=== PATIENT | female | born 1955 | race Caucasian/White ===

== ENCOUNTER 2020-06-09 12:35 | Emergency (ER) | payer OTHER, SELFPAY ==
--- NOTE | ~2020-06-09 | XR_ITS ---
EXAMINATION: XR knee RT 3V EXAM DATE: 06/09/2020 13:09 INDICATION: Fell, subsequent right knee pain anteriorly. [place] pop. Initial encounter. TECHNIQUE: Three projections of the right knee. Comparison is made to prior examination from 3. FINDINGS: No evidence osteochondral defect or joint body in the right knee joint. No appreciable j oint effusion. There are no acute fractures or dislocations identified. There is no subcutaneous gas . There is soft tissue swelling anteromedially. There are no radiopaque foreign bodies. There is m oderate patellofemoral and medial tibial femoral compartment primary osteoarthritis. IMPRESSION: 1. XR knee RT 3V exam without acute osseous findings. 2. Soft tissue swelling. 3. Moderate osteoarthritis. Reviewed, dictated and finalized at location B. [employer]
[2020-06-09 12:34] VITALS: BP 163/73; PULSE 75; RESP 18; TEMP 36.3; O2SAT 97
--- NOTE | 2020-06-09 13:26 | ED.LOWEXIN ---
HPI - Extremity Injury (Lower) General Chief Complaint: Extremity Injury, Lower Stated Complaint: knee pain Source: patient and EMS Mode of arrival: EMS Limitations: no limitations History of Present Illness HPI Narrative: 64 years old white female presents with right knee pain. Patient while get something on the floor, lost her balance and went on form floor mat striking her right knee. Patient denies other injuries. Patient report history of right knee pain for years, last MRI was January 2020. Patient denies any new physical findings of the right knee except feeling worse. 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 EYES: Denies visual changes, redness, or discharge. ENT: Denies rhinorrhea, congestion, sore throat, or otalgia. CARDIOVASCULAR: Denies chest pain, palpitations, or edema. RESPIRATORY: Denies cough or dyspnea. GASTROINTESTINAL: Denies abdominal pain, nausea, vomiting, or diarrhea. GENITOURINARY: Denies dysuria or hematuria. SKIN: Denies rash or itching. MUSCULOSKELETAL: Denies back pain, joint pain, or myalgia. NEUROLOGIC: Denies headache, numbness, or weakness. PSYCHIATRIC: Denies anxiety or depression. [facility] Past Medical History Medical History (Updated 06/09/20 @ 13:37 by Amol Kasper MD) Chronic knee pain Exam Narrative: Exam Narrative: General appearance: Well-developed, well-nourished Skin: Normal color Head: Normocephalic, nontraumatic Eyes: Clear conjunctiva ENT: Oropharynx normal, ears normal, nose normal Neck: Supple, nontender Chest and respiratory: Airway patent, no respiratory distress, no accessory muscle use Heart: Regular rate/rhythm Abdomen: Soft, nontender, no organomegaly, quiet bowel sounds Vascular: Normal peripheral pulses, normal capillary refill. Musculoskeletal: Diffuse tenderness anteriorly, no bruises, no deformity, no rash. Slightly swelling anterior medially which is chronic per patient history. Neurologic: Alert and oriented ?3, BRIM FLEXER is normal as tested, no gross motor deficit Course Course Emergency Course: Improving Vital Signs Vital signs: Vital Signs Temperature 36.3 C L 06/09/20 12:34 Pulse Rate 75 06/09/20 12:34 Respiratory Rate 18 06/09/20 12:34 Blood Pressure 163/73 H 06/09/20 12:34 Pulse Oximetry 97 06/09/20 12:34 Temperature 36.3 C L 06/09/20 12:34 Pulse Rate 75 06/09/20 12:34 Respiratory Rate 18 06/09/20 12:34 Blood Pressure 163/73 H 06/09/20 12:34 Pulse Oximetry 97 06/09/20 12:34 MDM - Extremity Injury (Lower) MDM Narrative Medical decision making narrative: Patient had chronic right knee pain, had a fall less than half foot on a soft floor mat. Right knee x-ray ordered. Further plan to follow Differential Diagnosis Differential diagnosis: Likely acute internal derangement of knee, fracture of femur and other (Contusion, sprain/strain) Critical Care Time Critical Care Time Critical Care Time: No Discharge Plan Discharge Clinical Impression: Contusion of knee, right Qualifiers: Encounter type: subsequent encounter Qualified Code(s): S80.01XD - Contusion of right knee, subsequent encounter Patient Disposition: Home, Self-Care Condition: Stable Instructions: Knee Pain (ED) Additional Instructions: Call your orthopedic for follow-up, off work for 3 days Prescriptions: New naproxen [Naprosyn] 500 mg tablet 500 mg PO BID PRN (
[2020-06-09] MEDS: HYDROcodone/acetaminophen (*CRX) 5-325 MG TABLET 1 TAB PO (13:50)
[2020-06-09 15:15] VITALS: BP 146/72; PULSE 76; RESP 18; O2SAT 99
== END 2020-06-09 15:16 | disposition home or self-care (01) ==
PROVIDERS: Emergency Provider Emergency Medicine; PCP Internal Medicine Infectious Disease
DX: S80.01XA Contusion of right knee, initial encounter (principal); W18.39XA Other fall on same level, initial encounter
CPT/HCPCS: 73562; 99283; A9270

== ENCOUNTER 2020-11-21 10:39 | Emergency (ER) | payer OTHER, SELFPAY ==
--- NOTE | ~2020-11-21 | XR_ITS ---
XR chest 1V portable DATE: 11/21/2020 10:58 INDICATION: Slurred speech. Possible cerebrovascular accident. TECHNIQUE: Portable AP chest on 11/21/2020 at 1058 hours COMPARISON: 08/16/2010 2 view chest FINDINGS: Normal heart size. No hilar or mediastinal enlargement. No pulmonary infiltrate or consolid ation, pleural effusion or pulmonary vascular congestion or pneumothorax. Degenerative spurring of the thoracic spine. Diffuse osteopenia. IMPRESSION: No active cardiopulmonary disease Reviewed, dictated and finalized at location B.
--- NOTE | ~2020-11-21 | CT_ITS ---
EXAMINATION: CT brain wo con DATE: 11/21/2020 11:01 INDICATION: Aphasia. Headache. TECHNIQUE: Computed tomography (CT) of the head was performed without intravenous contrast. The mA wa s adjusted according to patient size. Iterative reconstruction technique was employed. The dose-lengt h product was 605.33 mGy-cm. COMPARISON: None FINDINGS: There is no intracranial hemorrhage, acute infarction, or abnormal intracranial mass lesion . There are scattered areas of low attenuation in the cerebral white matter, which is within normal l imits for the patient's age. The ventricles are normal in size. The orbits are normal. The mastoid ai r cells are normal. There is sclerosis and enlargement of the right middle skull base predominantly i nvolving the sphenoid bone and right pterygoid process. The paranasal sinuses are clear. IMPRESSION: 1. Sclerosis and enlargement of the right middle skull base, consistent with metastatic disease. Reviewed, dictated and finalized at location A. IMPRESSION: 1. Sclerosis and enlargement of the right middle skull base, consistent with me tastatic disease.
[2020-11-21 10:44] VITALS: BP 164/68; PULSE 75; RESP 18; TEMP 36.3; O2SAT 99
[2020-11-21 10:50] LABS: Glucose Point of Care 198 mg/dl (65-105)
--- NOTE | 2020-11-21 10:50 | ECG_ITS ---
Measurements Intervals [place] Rate: 68 P: 76 LA: 144 QRS: -12 QRSD: 92 T: 104 QT: 363 QTc: 388 Interpretive Statements SINUS RHYTHM DELAYED PRECORDIAL R/S TRANSITION BORDERLINE ST-T WAVE ABNORMALITY- HIGH LATERAL LEADS BORDERLINE ECG Electronically Signed On 11-21-2020 10:53:41 CDT by Goyo Babb D.O.
--- NOTE | 2020-11-21 11:14 | ED.GENADULT ---
HPI - General Adult General Chief complaint: Neuro Symptoms/Deficit Stated complaint: Difficulty speaking Time Seen by Provider: 11/21/20 11:06 Source: patient, family and RN notes reviewed Mode of arrival: ambulatory Limitations: physical limitation and clinical condition History of Present Illness HPI narrative: Patient is 64 years old white female brought to the emergency room by her sister daughter in law complaining of not able to speak well, noticed yesterday. Patient lives with her daughter. Patient unable to tell me when the symptoms started because of the clinical condition. The [id number] is telling me that the symptoms probably started yesterday. No other family member at the bedside at this time. Patient is fully vaccinated for COVID-19. Related Data Home Medications Medication Instructions Recorded Confirmed atorvastatin 11/21/20 glimepiride mg 11/21/20 Allergies Allergy/AdvReac Type Severity Reaction Status Date / Time No Known Allergies Allergy Verified 11/21/20 10:53 Review of Systems Review of Systems: Narrative: CONSTITUTIONAL: Denies fever, chills, or sweats. EYES: Denies visual changes, redness, or discharge. ENT: Denies rhinorrhea, congestion, sore throat, or otalgia. CARDIOVASCULAR: Denies chest pain, palpitations, or edema. RESPIRATORY: Denies cough or dyspnea. GASTROINTESTINAL: Denies abdominal pain, nausea, vomiting, or diarrhea. GENITOURINARY: Denies dysuria or hematuria. SKIN: Denies rash or itching. MUSCULOSKELETAL: Denies back pain, joint pain, or myalgia. NEUROLOGIC: Denies headache, numbness, or weakness. PSYCHIATRIC: Denies anxiety or depression. PMFSH Past Medical History Medical History Chronic knee pain Social History Social History Gender identity (if verbalized by the patient): Female Exam Narrative: Exam Narrative: General appearance: Well-developed, well-nourished Skin: Normal color Head: Normocephalic, nontraumatic Eyes: Clear conjunctiva ENT: Oropharynx normal, ears normal, nose normal Neck: Supple, nontender Chest and respiratory: Airway patent, no respiratory distress, no accessory muscle use Heart: Regular rate/rhythm Abdomen: Soft, nontender, no organomegaly, quiet bowel sounds Vascular: Normal peripheral pulses, normal capillary refill. Musculoskeletal: Normal range of motion, nontender back Neurologic: Alert and and oriented to her name only, right facial drooping, left upper extremity drift, slurred speech, expressive aphasia Course Course Emergency Course: Stable Consultations Consultation #1: DR MORALES [facility], neurology, accepted patient transfusion. No bed available at this time. Date: 11/21/20 Time: : Consultation #2: DR VILLARREAL, neurologist at [facility] who accepted patient transfusion Date: 11/21/20 Time: Consultation #3: DR BAGLEY, hospitalist at [facility] who accepted patient transfer Date: 11/21/20 Time: : Vital Signs Vital signs: Vital Signs Temperature 36.3 C L 11/21/20 10:44 Pulse Rate 75 11/21/20 10:44 Respiratory Rate 18 11/21/20 10:44 Blood Pressure 164/68 H 11/21/20 10:44 Pulse Oximetry 99 11/21/20 10:44 Temperature 36.3 C L 11/21/20 10:44 Pulse Rate 75 11/21/20 10:44 Respiratory Rate 18 11/21/20 10:44 Blood Pressure 164/68 H 11/21/20 10:44 Pulse Oximetry 99 11/21/20 10:44 Medical Decision Making [facility] Narrative Medical decision making narrative: Patient presents with strokelike symptoms. Labs, chest x-ray, EKG, CT scan of the head ordered. The above work-up sh
[2020-11-21 11:16] LABS: Basophils Percent Auto 0.2 % (0.2-1.2); Eosinophils Absolute Auto 0.1 K/mm3 (0-0.3); Hematocrit 51.6 % (37.0-47.0); Hemoglobin 17.4 g/dL (12.0-15.0); Immature Granulocyte Absolute 0.06 K/mm3 (0.00-0.031); Immature Granulocyte Percent A 0.5 % (0-0.5); Lymphocytes Absolute Auto 3.51 K/mm3 (0.9-3.2); Lymphocytes Percent Auto 27.9 % (18.3-44.2); Mean Corpuscular HGB Conc 33.7 g/dl (32-36); Mean Corpuscular Hemoglobin 30.1 pg (26-34); Mean Corpuscular Volume 89.1 fl (80-100); Mean Platelet Volume 9.6 fl (7.4-10.4); Monocytes Absolute Auto 0.9 K/mm3 (0.1-0.6); Monocytes Percent Auto 7.4 % (2.6-8.5); Neutrophils Absolute Auto 7.9 K/mm3 (1.3-6.7); Platelet Count Result 312 k/mm3 (150-375); Red Blood Count 5.79 M/mm3 (4.2-5.4); Red Cell Distribution Width 12.1 % (11.5-14.5); White Blood Count 12.6 K/mm3 (4.5-10.0)
[2020-11-21 11:27] LABS: Anion Gap 7 mmol/L (8-16); Blood Urea Nitrogen 18 mg/dL (7-17); Carbon Dioxide 30 mmol/L (22-30); Chloride 103 mmol/L (98-107); Estimated CRCL calculation 93 ml/min; Estimated Glomerular Filt Rate > 60; Glucose 183 mg/dL (65-105); Sodium 140 mmol/L (137-145)
[2020-11-21 11:28] LABS: INR 0.9; Prothrombin Time 11.6 Seconds (11.1-14.7)
[2020-11-21 11:30] LABS: Partial Thromboplastin Time 22.3 SECONDS (22.3-36.8)
[2020-11-21 11:39] LABS: Troponin I < 0.012 ng/mL (0.000-0.034)
[2020-11-21 11:54] VITALS: BP 155/71; PULSE 86; RESP 12; O2SAT 97
[2020-11-21 13:16] VITALS: BP 143/52; PULSE 68; RESP 18; O2SAT 98
[2020-11-21 13:35] VITALS: BP 143/72; PULSE 77; RESP 14; O2SAT 97
--- NOTE | 2020-11-21 13:40 | PC.NURSE ---
Report given to [facility] at this time and transferred to [facility] [place] at this time.
== END 2020-11-21 13:42 | disposition short-term general hospital (02) ==
PROVIDERS: Emergency Provider Emergency Medicine; PCP Internal Medicine Infectious Disease
DX: I63.9 Cerebral infarction, unspecified (principal); C79.51 Secondary malignant neoplasm of bone; C80.1 Malignant (primary) neoplasm, unspecified; R29.705 NIHSS score 5; R94.31 Abnormal electrocardiogram [ECG] [EKG]
CPT/HCPCS: 36415; 70450; 71045; 80048; 82948; 84484; 85025; 85610; 85730; 93005; 99284; 99285

== ENCOUNTER 2021-07-21 13:58 | Observation (INO) | payer OTHER, SELFPAY ==
[2021-07-21] VITALS (17 sets, daily range): BP systolic 145–195; BP diastolic 56–101; PULSE 72–96; RESP 12–27; TEMP 36.5–36.9; O2SAT 97–100; BMI 30.2
--- NOTE | ~2021-07-21 | US_ITS ---
EXAMINATION: US carotid duplex BI DATE: 07/22/2021 09:12 INDICATION: Transient ischemic episode TECHNIQUE: Grayscale, color Doppler, and pulsed Doppler images of the cervical carotid arteries were obtained. The degree of vessel stenosis is placed in one of the following categories: normal, <50%, 5 0-69%, >=70% but less than near-occlusion, near-occlusion, or total occlusion. Note that percent sten osis relative to normal distal artery lumen diameter is indirectly measured from velocity measurement s as described by Eitan, et al. Radiology 2003; 229:340-346. COMPARISON: None. FINDINGS: RIGHT: The right common carotid artery (CCA) peak systolic velocity (PSV) is 76 cm/s. The right internal car otid artery (ICA) PSV is 56 cm/s. The right ICA end-diastolic velocity (EDV) is 10 cm/s. The right IC A/CCA PSV ratio is 0.7. Grayscale and color Doppler images yield an estimate of <50% diameter reducti on from plaque in the ICA. The external carotid artery (ECA) PSV is 123 cm/s. There is antegrade flow in the right vertebral artery. LEFT: The left CCA PSV is 69 cm/s. The left ICA PSV is 61 cm/s. The left ICA EDV is 19 cm/s. The left ICA/C CA PSV ratio is 0.9. Grayscale and color Doppler images yield an estimate of <50% diameter reduction from plaque in the ICA. The ECA PSV is 67 cm/s. There is antegrade flow in the left vertebral artery. IMPRESSION: 1. <50% stenosis in the right internal carotid artery. 2. <50% stenosis in the left internal carotid artery. Reviewed, dictated and finalized at location A.
--- NOTE | ~2021-07-21 | CT_ITS ---
EXAMINATION: CT brain wo con DATE: 07/21/2021 14:25 INDICATION: Altered mental status and right hemiparesis TECHNIQUE: Computed tomography (CT) of the head was performed without intravenous contrast. Sagittal and coronal reconstructions were performed. The mA was adjusted according to patient size. Iterative reconstruction technique was employed. The dose-length product was 605.33 mGy-cm. COMPARISON: head CT dated 11/21/2020 FINDINGS: Small region of encephalomalacia in the left frontal lobe consistent with chronic infarct. No acute i ntracranial hemorrhage, acute infarction or abnormal extra axial fluid collection. Ventricles are nor mal and symmetric. No mass/mass effect. No appreciable interval change in a sclerotic lesion which ap pears to expand the right greater wing of the sphenoid which appears unchanged since the prior study. The orbits, paranasal sinuses and mastoid air cells are normal. IMPRESSION: 1. No acute intracranial process. 2. Small old infarct in the left frontal lobe. 3. Stable appearance of a sclerotic expansile lesion of the right greater wing of the sphenoid which could be either benign such as fibrous dysplasia or Paget's disease or malignant/metastatic although the lack of interval change argues against untreated malignancy. Reviewed, dictated and finalized at location A. IMPRESSION: 1. No acute intracranial process. 2. Small old infarct in the left frontal lobe. 3. Stable appearance of a sclerotic expansile lesion of the right greater wing of the sphenoid which could be either benign such as fibrous dysplasia or Paget 's disease or malignant/metastatic although the lack of interval change argues against untreated malignancy.
--- NOTE | ~2021-07-21 | MR_ITS ---
EXAMINATION: MR brain/brain stem wo/w con DATE: 07/22/2021 08:14 INDICATION: Transient ischemic attack. Right hemiparesis. TECHNIQUE: Magnetic resonance imaging (MRI) of the brain and brainstem was performed without and with 14 mL MultiHance intravenous contrast. Sequences included sagittal and axial T1-weighted FSE, axial diffusion-weighted FS EPI, axial T2*-weighted GRE, axial T2-weighted FLAIR Propeller, and axial T2-we ighted Propeller. Postcontrast sequences included axial, sagittal, and coronal T1-weighted FSE. Appar ent diffusion coefficient (ADC) maps were created. COMPARISON: Head CT 07/21/2021, 11/21/2020 FINDINGS: There is a small acute infarct in left frontoparietal region. There is no intracranial hemo rrhage or abnormal mass lesion. There are old infarcts in left frontal lobe. There are scattered area s of nonspecific increased T2-weighted signal intensity in the cerebral white matter, which is within normal limits for the patient's age. The ventricles are normal in size. The orbits are normal. There is mild mucosal thickening in the ethmoid sinuses. The mastoid air cells are normal. There is an exp ansile sclerotic mass of right sphenoid measuring 5.6 x 2.9 cm. IMPRESSION: 1. Small acute infarct in left frontoparietal region. 2. Old infarcts in left frontal lobe. 3. 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 Reviewed, dictated and finalized at location A. IMPRESSION: 1. Small acute infarct in left frontoparietal region. 2. Old infarcts in left frontal lobe. 3. 5.6 x 2.9 cm expansile sclerotic mass in right sphenoid bone, stable from , most likely a benign lesion such as fibrous dysplasia or Paget disease given the lack of interval change.
--- NOTE | ~2021-07-21 | CT_ITS ---
EXAMINATION: CTA brain carotid DATE: 07/22/2021 11:17 INDICATION: Right hemiparesis. Acute cerebrovascular accident. TECHNIQUE: Computed tomographic angiography (CTA) of the head was performed with 100 mL Omnipaque-350 intravenous contrast. CTA of the neck was performed with intravenous contrast. Automated exposure co ntrol and iterative reconstruction technique were employed. The dose-length product was 1085.70 mGy-c m. Maximum intensity projection and volume rendered 3D-reconstructions were created by the technologi on a separate workstation. COMPARISON: Head CT 07/21/2021, 11/21/2020, brain MRI 07/22/2021 FINDINGS: HEAD CTA: There are old infarcts in left frontal lobe. There is a small acute infarct in left frontop arietal region. There is no intracranial hemorrhage or abnormal mass lesion. The ventricles are lucille l in size. The paranasal sinuses are clear. The mastoid air cells are normal. There is a 5.6 x 2.9 cm expansile sclerotic mass in right sphenoid bone. The orbits are normal. Left vertebral artery is dom inant. There is no significant stenosis of basilar artery or the posterior cerebral arteries. The pos terior communicating arteries are normal. There is no significant stenosis of the intracranial international marketing specialist al carotid arteries or anterior cerebral arteries. There is moderate stenosis of proximal left middle cerebral artery. There is no aneurysm. NECK CTA: There is mild scarring at the lung apices. There are no pathologically enlarged lymph nodes . There is no significant stenosis of the vertebral arteries. There is plaque in the proximal interna l carotid arteries. There is 0% stenosis of the proximal right internal carotid artery relative to no rmal distal artery lumen diameter (NASCET criteria). There is 0% stenosis of the proximal left international marketing specialist al carotid artery relative to normal distal artery lumen diameter. There is mild cervical spondylosis . IMPRESSION: 1. Small acute infarct in left frontoparietal region. 2. Old infarcts in left frontal lobe. 3. 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 4. 0% stenosis of the proximal internal carotid arteries relative to normal distal artery lumen diame ters (NASCET criteria). 5. Expansile sclerotic mass in right sphenoid bone, stable from 11/21/2020, most likely a benign lesio n such as fibrous dysplasia or Paget disease given the lack of interval change. Reviewed, dictated and finalized at location A. IMPRESSION: 1. Small acute infarct in left frontoparietal region. 2. Old infarcts in left frontal lobe. 3. 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 4. 0% stenosis of the proximal internal carotid arteries relative to normal dis vicky artery lumen diameters (NASCET criteria). 5. Expansile sclerotic mass in right sphenoid bone, stable from 11/21/2020, most likely a benign lesion such as fibrous dysplasia or Paget disease given the la ck of interval change.
--- NOTE | 2021-07-21 14:15 | ECG_ITS ---
Measurements Intervals [place] Rate: 72 P: 69 SD: 164 QRS: 38 QRSD: 90 T: 106 QT: 356 QTc: 390 Interpretive Statements SINUS RHYTHM NONSPECIFIC T-WAVE ABNORMALITY COMPARED TO ECG 11/21/2020 10:50:47 T-WAVE ABNORMALITY NOW PRESENT Electronically Signed On 07-21-2021 18:39:32 CDT by Kailey Tate M.D.
[2021-07-21 14:39] LABS: Basophils Percent Auto 0.3 % (0.2-1.2); Eosinophils Absolute Auto 0.3 K/mm3 (0-0.3); Eosinophils Percent Auto 2.6 % (0-4.4); Hematocrit 43.3 % (37.0-47.0); Hemoglobin 15.1 g/dL (12.0-15.0); Immature Granulocyte Absolute 0.03 K/mm3 (0.00-0.031); Immature Granulocyte Percent A 0.3 % (0-0.5); Lymphocytes Absolute Auto 3.51 K/mm3 (0.9-3.2); Lymphocytes Percent Auto 36.7 % (18.3-44.2); Mean Corpuscular HGB Conc 34.9 g/dl (32-36); Mean Corpuscular Hemoglobin 30.8 pg (26-34); Mean Corpuscular Volume 88.4 fl (80-100); Mean Platelet Volume 9.2 fl (7.4-10.4); Monocytes Absolute Auto 0.6 K/mm3 (0.1-0.6); Monocytes Percent Auto 6.6 % (2.6-8.5); Neutrophils Absolute Auto 5.1 K/mm3 (1.3-6.7); Neutrophils Percent Auto 53.5 % (45.5-73.1); Platelet Count Result 324 k/mm3 (150-375); Red Cell Distribution Width 11.8 % (11.5-14.5); White Blood Count 9.6 K/mm3 (4.5-10.0)
[2021-07-21 14:54] LABS: Glucose Point of Care 139 mg/dl (65-105)
[2021-07-21 14:55] LABS: Alanine Aminotransferase 16 U/L (4-35); Albumin Level 4.4 g/dL (3.5-5.1); Alkaline Phosphatase 73 U/L (38-126); Anion Gap 7 mmol/L (8-16); Aspartate Amino Transferase 32 U/L (14-36); Bilirubin,Total 0.3 mg/dL (0.2-1.3); Blood Urea Nitrogen 13 mg/dL (7-17); Calcium 9.7 mg/dL (8.4-10.2); Carbon Dioxide 27 mmol/L (22-30); Chloride 103 mmol/L (98-107); Estimated CRCL calculation 90 ml/min; Estimated Glomerular Filt Rate > 60; Glucose 133 mg/dL (65-110); Potassium 3.8 mmol/L (3.4-5.0); Sodium 137 mmol/L (137-145)
[2021-07-21 14:56] LABS: INR 0.9
[2021-07-21] MEDS: ASPIRIN 81 MG CHEWABLE TABLET 324 MG (15:04)
--- NOTE | 2021-07-21 15:04 | ED.WEAKNESS ---
HPI - Weakness General Chief complaint: Weakness Stated complaint: RT side weakness Time Seen by Provider: 07/21/21 14:49 Source: patient and RN notes reviewed Mode of arrival: ambulatory Limitations: no limitations History of Present Illness HPI Narrative: Patient is 65 years old white female presented to the ED with sudden onset of trouble moving the right lower extremity and right upper extremity, felt weird, not following her orders. Lasted about 30 minutes then gradually getting better. Currently patient is not back to normal 100% but her symptoms resolved almost 80%. History of CVA November 21, 2020, with aphasia, resolved in 5 days. Currently patient on Coumadin. Patient used aspirin for 90 days after the stroke. History of diabetes, hyperlipidemia, smoking, intermittent marijuana use, no drinking. Patient came to the emergency room by a car Related Data Home Medications Medication Instructions Recorded Confirmed atorvastatin 11/21/20 glimepiride mg 11/21/20 Allergies Allergy/AdvReac Type Severity Reaction Status Date / Time No Known Allergies Allergy Verified 11/21/20 10:53 Review of Systems Review of Systems: CONSTITUTIONAL: Denies fever, chills, or sweats. EYES: Denies visual changes, redness, or discharge. ENT: Denies rhinorrhea, congestion, sore throat, or otalgia. CARDIOVASCULAR: Denies chest pain, palpitations, or edema. RESPIRATORY: Denies cough or dyspnea. GASTROINTESTINAL: Denies abdominal pain, nausea, vomiting, or diarrhea. GENITOURINARY: Denies dysuria or hematuria. SKIN: Denies rash or itching. MUSCULOSKELETAL: Denies back pain, joint pain, or myalgia. NEUROLOGIC: Denies headache, numbness, or weakness. PSYCHIATRIC: Denies anxiety or depression. PMFSH Past Medical History Medical History Chronic knee pain Social History Social History Gender identity (if verbalized by the patient): Female Exam Narrative: General appearance: Well-developed, well-nourished, patient talks funny which is normal for her. Skin: Normal color Head: Normocephalic, nontraumatic Eyes: Clear conjunctiva ENT: Oropharynx normal, ears normal, nose normal Neck: Supple, nontender Chest and respiratory: Airway patent, no respiratory distress, no accessory muscle use Heart: Regular rate/rhythm Abdomen: Soft, nontender, no organomegaly, quiet bowel sounds Vascular: Normal peripheral pulses, normal capillary refill. Musculoskeletal: Normal range of motion, nontender back Neurologic: Alert and oriented ?3, CERTIFIED ART THERAPIST is normal as tested, no gross motor deficit Course Course Emergency Course: Improving Patient reports not taking her Coumadin. INR is 0.9, patient talks funny, which is normal for her Consultations Consultation #1: Dr. Morrison Date: 07/21/21 Time: 15:19 Consultation #2: Rebecca nurse practitioner, hospitalist Date: 07/21/21 Time: 15:19 Vital Signs Vital signs: Vital Signs Temperature 36.6 C 07/21/21 14:07 Pulse Rate 96 07/21/21 14:07 Respiratory Rate 18 07/21/21 14:07 Blood Pressure 174/72 H 07/21/21 14:07 Pulse Oximetry 98 07/21/21 14:07 Temperature 36.6 C 07/21/21 14:07 Pulse Rate 96 07/21/21 14:07 Respiratory Rate 18 07/21/21 14:07 Blood Pressure 174/72 H 07/21/21 14:07 Pulse Oximetry 98 07/21/21 14:07 MDM - Weakness Lab Data Result diagrams: 07/21/21 14:33 07/21/21 14:33 Labs: Lab Results 07/21/21 07/21/21 07/21/21 Range/Units 14:33 14:33 14:33 WBC 9.6 (4.5-10.0) K/mm3 RBC 4.90 (4.2-5.4) M/mm3 Hgb 15.1 H (12.0-15.0) g/dL Hc
[2021-07-21 15:22] LABS: Add Urine Microscopic? NO; Appearance Urine Clear (Clear); Bilirubin Urine Negative (Negative); Blood Urine Negative (Negative); Color Urine Yellow (Yellow); Glucose Urine UA Negative (Negative); Ketones Urine Negative (Negative); Leukocyte Esterase Ur Negative LEU/UL (Negative); Nitrate Urine Negative (Negative); Protein Urine Negative (Negative); Urobilinogen Urine Negative mg/dL (<2.0)
[2021-07-21 17:32] LABS: Glucose Point of Care 95 mg/dl (65-105)
--- NOTE | 2021-07-21 17:33 | ADMGEN ---
This patient, Niya Lombardi, was admitted to [facility] Surg Room 320-01 at 1702. Patient/family oriented to hospital policies and general routines including ID bracelet, bed and alarms, visiting hours, pain management, procedures, bathroom and other care routines, personal items, smoking policy, room service/diet, and visiting hours. Information on how to activate the Rapid Response Team has been discussed. Patient/Family are encouraged to report perceived risks to care and to ask questions if they do not understand what they are told or what they should do.
[2021-07-21 20:20] LABS: Glucose Point of Care 147 mg/dl (65-105)
--- NOTE | 2021-07-21 21:16 | PM.IMHP ---
H&P: HPI History of Present Illness Date/Time: Patient was placed observation status for expected length of stay less than 23 hours for management, will plan to re-evaluate tomorrow for improvement. 07/21/21 21:16 Chief Complaint: Right foot and arm numbness Narrative: Ms. Lombardi is a 65-year-old female who presented emergency room with complaints of left foot and right arm numbness. Patient states she was at work and she went to move her right foot she felt like it was asleep but it there was no ?tingling?. Patient states that she did notice that her right arm began to feel very numb also. Patient states she then sat down and she began having feeling in her foot. Patient states that she called her daughter for right the [facility] and her daughter's friend to come pick her up. Patient denied any slurring of speech. Patient denied any facial droop. Patient denied any double vision, blurred vision, or vision loss. Patient states she had no chest pain, shortness breast, lightheadedness, dizziness, syncopal, or near syncopal episodes. Patient states that she did have stroke in November of 2020 and she was seen at [facility] and since that time she has had some slow speech because she thinks very hard before she speaks. Patient states that at the time of her previous stroke she was placed on aspirin 325 mg as well as Plavix 75 mg daily. Patient states that she was told to quit taking the aspirin 325 mg after 90 days. Patient states that she ran out of the Plavix and never followed up with Neurology to get it refilled. Patient states she is unsure she is supposed to be taking the Plavix or not. Patient states she does have a known history of CVA, diabetes mellitus, hypertension, dyslipidemia, and osteoarthritis. Patient states she is an active smoker and has been so for approximately 30 years. Review of Systems Review of Systems: A 12 point review of systems was completed patient all pertinent positive and negative per HPI the remainder are unremarkable. [facility] Past Medical History Medical History (Updated 07/21/21 @ 21:25 by Rebecca Trejo APRN) Chronic knee pain CVA (cerebral vascular accident) Diabetes mellitus Dyslipidemia Hypertension Osteoarthritis Surgical History Surgical History (Updated 07/21/21 @ 21:25 by Rebecca Trejo APRN) History of reversal of tubal ligation Status post complete hysterectomy Social History Social History Smoking packs per day: 1 Smoking cigarettes per day: 20.0 Years smoked: 35 Smoking pack-years: 35.00 Smoking status: Current every day smoker Tobacco type: cigarettes Alcohol intake: never Substance use: current Substance use type: marijuana Gender identity (if verbalized by the patient): Female Spiritual care concerns: No Meds Home Medications and Allergies Home Medications Medication Instructions Recorded Confirmed Type atorvastatin [Lipitor] 40 mg PO DAILY 11/21/20 07/21/21 History clopidogrel [Plavix] 75 mg PO DAILY 07/21/21 07/21/21 History insulin glargine [Lantus Solostar 12 unit SUBCUT HS 07/21/21 07/21/21 History U-100 Insulin] insulin lispro 6 unit SUBCUT [facility] 07/21/21 07/21/21 History liraglutide [Victoza 3-Ryan] 0.6 mg SUBCUT HS 07/21/21 07/21/21 History Allergies Allergy/AdvReac Type Severity Reaction Status Date / Time No Known Allergies Allergy Verified 07/21/21 16:58 Vital Signs Vital Signs - 24 hr 07/21/21 14:07 07/21/21 14:26 07/21/21 14:29 Temperature 36.6 C Pulse Rate 96 79 76 Respiratory Rate 18 17 19 Blood Pressure 174/72 H 187/70 H Pulse Oximetry 98 100 99 07/21/21 14:30 07/21/21 14:39 07/21/21 14:45 Temperature Pulse Rate 78 78 Respiratory Rate 17 14 Blood Pressure 152/73 H Pulse Oximetry 100 98 07/21/21 14:46 07/21/21 15:00 07/21/21 15:04 Temperature Pulse Rate 89 79 Respiratory Rate 27 H 12 Blood Pressure 164/76 H 1
[2021-07-21] MEDS: INSULIN GLARGINE (*BKC) 100 UNITS/ML 12 UNITS SUB-Q (22:38)
[2021-07-22] VITALS: PULSE 72
--- NOTE | 2021-07-22 | ECHO_ITS ---
Patient Info Name: Niya Lombardi Age: 65 years : 1955 Gender: Female Ht: 62 in Wt: 164 lbs BSA: 1.83 m2 HR: 76 bpm BP: 131 / 53 mmHg Heart Rhythm: Sinus Rhythm Technical Quality: Fair Exam Date: 07/22/2021 7:31 AM Exam Location: [facility] Pulmonary Patient Status: Inpatient Admit Date: 07/21/2021 Staff Ordering Physician: Rebecca Trejo APRN French Tutor: Rosalina Amos RDCS Attending Provider: Marixa Rosas PA-C Referring Physician: Neil QUACH; Exam Type: CA echo doppler color flow Study Info Indications - TIA Complete two-dimensional, color flow and Doppler transthoracic echocardiogram is performed. Summary 1. Complete two-dimensional, color flow and Doppler transthoracic echocardiogram is performed. 2. Normal left ventricular size with borderline concentric hypertrophy. Good systolic function of all segments with no segmental wall motion abnormalities. Ejection fraction is measured at 73% and visually appears 65-70%. Grade 2 diastolic dysfunction is present. 3. Left atrial chamber dimension is mildly enlarged. 4. No pulmonary hypertension, estimated pulmonary arterial systolic pressure is 25 mmHg. 5. No significant valve disease. 6. No evidence of intracardiac shunting with bubble study during normal respiration on Valsalva. 7. Normal sinus rhythm. Left Ventricle Left ventricular chamber dimension is normal. Left ventricular systolic function is normal, estimated at 65-70%. There is mildly increased left ventricular wall thickness. Left ventricular septal wall motion is normal. The left ventricular diastolic function is grade II diastolic dysfunction. Right Ventricle Right ventricular chamber dimension is normal. Right ventricular systolic function is normal. Left Atria Left atrial chamber dimension is mildly enlarged. Right Atria Right atrial chamber dimension is normal. Aortic Valve The aortic valve is trileaflet. There is no aortic valve sclerosis. There is no aortic valve stenosis. There is no aortic valve regurgitation. Pulmonic Valve The pulmonic valve is normal. There is no pulmonic valve stenosis. There is no pulmonic regurgitation. Mitral Valve The mitral valve has normal leaflets. There is no mitral valve stenosis. There is no mitral valve regurgitation. Tricuspid Valve The tricuspid valve leaflets are normal. There is no significant tricuspid valve stenosis. There is trace tricuspid valve regurgitation. No pulmonary hypertension, estimated pulmonary arterial systolic pressure is 25 mmHg. Pericardium/Pleural The pericardium appears normal. There is no pericardial effusion. Inferior Vena Cava Normal inferior vena cava with >50% collapse upon inspiration consistent with Empty right atrial pressure, 10 mmHg. Aorta The aortic root size at the sinus of Valsalva is normal. The prox ascending aorta size is normal. Left Ventricular Outflow Tract Name Value Normal LVOT 2D LVOT Diameter 2.0 cm LVOT Doppler LVOT Peak Gradient 2 mmHg LVOT Mean Gradient 1 mmHg
[2021-07-22 04:00] VITALS: PULSE 67
[2021-07-22 06:00] VITALS: BP 131/53; PULSE 76; RESP 18; TEMP 35.9; O2SAT 96
[2021-07-22 06:03] LABS: Glucose Point of Care 112 mg/dl (65-105)
[2021-07-22 06:14] LABS: Basophils Percent Auto 0.4 % (0.2-1.2); Eosinophils Absolute Auto 0.4 K/mm3 (0-0.3); Eosinophils Percent Auto 3.8 % (0-4.4); Hematocrit 40.1 % (37.0-47.0); Hemoglobin 13.9 g/dL (12.0-15.0); Immature Granulocyte Absolute 0.02 K/mm3 (0.00-0.031); Immature Granulocyte Percent A 0.2 % (0-0.5); Lymphocytes Absolute Auto 4.02 K/mm3 (0.9-3.2); Lymphocytes Percent Auto 38.9 % (18.3-44.2); Mean Corpuscular HGB Conc 34.7 g/dl (32-36); Mean Corpuscular Volume 89.5 fl (80-100); Mean Platelet Volume 9.5 fl (7.4-10.4); Monocytes Absolute Auto 0.8 K/mm3 (0.1-0.6); Monocytes Percent Auto 7.6 % (2.6-8.5); Neutrophils Absolute Auto 5.1 K/mm3 (1.3-6.7); Neutrophils Percent Auto 49.1 % (45.5-73.1); Platelet Count Result 285 k/mm3 (150-375); Red Blood Count 4.48 M/mm3 (4.2-5.4); Red Cell Distribution Width 11.8 % (11.5-14.5); White Blood Count 10.3 K/mm3 (4.5-10.0)
[2021-07-22 06:22] LABS: Anion Gap 4 mmol/L (8-16); Blood Urea Nitrogen 14 mg/dL (7-17); Calcium 8.8 mg/dL (8.4-10.2); Carbon Dioxide 25 mmol/L (22-30); Chloride 107 mmol/L (98-107); Cholesterol 175 mg/dL (0-200); Estimated CRCL calculation 90 ml/min; Estimated Glomerular Filt Rate > 60; Glucose 110 mg/dL (65-110); HDL Direct 28 mg/dL; Potassium 3.8 mmol/L (3.4-5.0); Sodium 136 mmol/L (137-145); Triglycerides 246 mg/dL (<150)
[2021-07-22 06:33] LABS: LDL Cholesterol Direct 98 mg/dL
[2021-07-22 07:37] LABS: Glucose Point of Care 120 mg/dl (65-105)
[2021-07-22 08:10] VITALS: O2SAT 96
[2021-07-22] MEDS: ASPIRIN 81 MG CHEWABLE TABLET PO (09:30)
[2021-07-22] MEDS: CLOPIDOGREL BISULFATE 75 MG TABLET PO (09:31)
[2021-07-22] MEDS: ENOXAPARIN 40 MG/0.4 ML SYRINGE SUB-Q (09:31)
[2021-07-22] MEDS: ATORVASTATIN 40 MG TABLET PO (09:31)
[2021-07-22 11:31] LABS: Glucose Point of Care 244 mg/dl (65-105)
--- NOTE | 2021-07-22 11:53 | PCCCNOTE ---
On 07/22/21, the student, [Asya Braswell ], provided care and completed [facility] documentation on this patient. I have reviewed the student's documentation and agree with the findings.
--- NOTE | 2021-07-22 12:22 | WPDNEURCNPN ---
Assessment and Plan Additional Plan 1. TIA 2. Diabetes mellitus type 2 with mild diabetic neuropathy 3. Hypertension 4. Hyperlipidemia 5. 5.6x2.9cm expansile sclerotic mass in the right sphenoid bone which is stable from November 21, 2020 most likely benign lesion such as fibrous dysplasia or Paget's disease 6. Documented a small acute infarct in the left fronto parietal region plan is to continue on aspirin and Plavix particularly with the presence of moderate stenosis of the proximal left middle cerebral artery Consult date: 07/22/21 HPI: Niya Lombardi is a 65 year old female Admitted to the hospital through the emergency room. She presented with sudden onset of difficulties in moving her right lower extremity and right upper extremity along with the veered sensation the whole episode lasted for about 30 minutes then gradually she got better though she is not back to normal 100% she has had cerebrovascular accident in November of 2020 along with the difficulties with speech which resolved in about 5 days patient is right now on Coumadin though she use aspirin also for 90 days after the stroke she does have ongoing history of diabetes mellitus, hyperlipidemia, being allergic to no specific medication and taking only atorvastatin and glimepiride at home at the time of initial visit in the emergency room she had no other specific problems. Her CBC was normal, though as the CMP except the blood sugar of 133, and a CT scan of the head documented small old infarct in left frontal lobe in addition to the Reynaldo otic expansile lesion of the right greater wing of the sphenoid bone the possibility of fibrous dysplasia or pages disease or malignancy of metastatic disease patient was admitted to the hospital with the diagnosis of TIA. At the time of initial presentation she also mention that she has the slow speech ever since she had the 1st stroke she has to think very hard before she speaks and also mention that she ran out of the Plavix and never followed up with a neurologist to get it refilled, she is currently everyday smoker is smoking pack years of 35 and 20 cigarettes per day and her outpatient medication also included insulin atorvastatin clopidogrel which she already mention that she had not been taking he was admitted to the hospital with the diagnosis of 1. TIA 2. Type 2 diabetes mellitus 3. Hypertension 4. Dyslipidemia. Her subsequent investigations included a CTA which documented a small acute infarct in the left frontoparietal region with old infarcts in left frontal lobe and moderate stenosis of proximal left middle cerebral artery in addition to expansile sclerotic mass in the right sphenoid bone she has been stable since November 21, 2020 and most likely is a benign lesion such as fibrous dysplasia or Paget's disease given the lack of interval change and her routine labs again has documented blood sugar of 244 Review of Systems Review of Systems: All systems reviewed & are unremarkable except as noted in HPI and below PMFSH Past Medical History Medical History Chronic knee pain CVA (cerebral vascular accident) Diabetes mellitus Dyslipidemia Hypertension Osteoarthritis Surgical History Surgical History History of reversal of tubal ligation Status post complete hysterectomy Social History Social History Smoking packs per day: 1 Smoking cigarettes per day: 20.0 Years smoked: 35 Smoking pack-years: 35.00 Smoking status: Current every day smoker Tobacco type: cigarettes Alcohol intake: never Substance use: current Substance use type: marijuana Gender identity (if verbalized by the patient): Female Spiritual care concerns: No Meds Home Medications and Allergies Home Medications Medication Instructions Recorded Confirmed Type atorvastatin [Lipitor] 40 mg PO DAILY 11/21/2007/21
[2021-07-22] MEDS: INSULIN ASPART (*BKC) 100 UNITS/ML 6 UNITS SUB-Q (13:00)
[2021-07-22 13:35] VITALS: BP 139/55; PULSE 68; RESP 18; TEMP 36.3; O2SAT 96
--- NOTE | 2021-07-22 16:27 | P.DS_ITS ---
DS: Admitting Diagnosis Discharge Date 07/22/2021 Admitting Diagnosis Acute CVA DS: Discharge Diagnosis Discharge Diagnosis (1) Acute CVA (cerebrovascular accident): Code(s): I63.9 - Cerebral infarction, unspecified Status: Acute Assessment and Plan: Patient presented with right-sided weakness that lasted for 30 minutes * Head CT on presentation was negative for acute findings with the sense of old infarct, consistent with patient's history of prior stroke. Noted that she was supposed to be on aspirin and Plavix due to this history but had not been taking this as she did not get this prescription refilled * Follow-up MRI showed small acute infarct in the left frontoparietal region * Carotid Doppler with <50% stenosis of the bilateral internal carotid arteries * Head/neck CTA performed showed 0% stenosis of the proximal internal carotid arteries * Echocardiogram with bubble study showed normal EF, no significant valvular disease, no evidence of intracardiac shunting * The patient's symptoms resolved and she was at her baseline functional status * She did have issues with word finding which has been ongoing since her previous stroke in November 2020. She was evaluated by speech therapy during her hospitalization and was referred for outpatient ST to continue therapy * Lipid panel reviewed. Continue high intensity statin * Begin aspirin and Plavix. Educated regarding importance of follow-up and medication compliance * She was seen in consultation by Neurology during admission * Educated extensively on smoking cessation as well as lifestyle and dietary modifications (2) Diabetes mellitus: Code(s): E11.9 - Type 2 diabetes mellitus without complications Status: Acute Assessment and Plan: A1c is 7.9. * Blood sugars reviewed during admission were generally well controlled * Continue home insulin regimen consisting of 12 units Lantus qHS and 6 units lispro with meals * Continue Victoza * Tight glycemic control encouraged. Instructed to monitor blood sugars at home with meals and at bedtime and follow-up with PCP for review and medication adjustment as needed (3) Hypertension: Code(s): I10 - Essential (primary) hypertension Status: Acute Assessment and Plan: Blood sugars were elevated on presentation but did improve prior to discharge * She is not on any antihypertensive medications. States she stopped taking these after losing quite a bit of weight and no longer requiring medications for BP control * Blood pressure was in the 130-140 systolic around time of discharge. * She should monitor blood pressures at home and follow-up with PCP in 1 week for blood pressure check (4) Dyslipidemia: Code(s): E78.5 - Hyperlipidemia, unspecified Status: Acute Assessment and Plan: Lipid panel reviewed * Continue high-intensity statin * Provided instruction on dietary modifications (5) Tobacco abuse: Code(s): Z72.0 - Tobacco use Status: Acute Assessment and Plan: Patient smokes 1 pack per day * Educated on smoking cessation for 5 minutes * She is aware that continued tobacco use will increase her risk for stroke * Patient reports she will attempt to quit smoking (6) Abnormal brain scan: Code(s): R94.02 - Abnormal brain scan Status: Acute Assessment and Plan: CT MRI of the brain showed stable appearance of sclerotic expansile lesion of right sphenoid bone * Noted to be stable from prior imaging in November 2020 * [place] to be most consistent with benign
--- NOTE | 2021-07-22 16:27 | PM.DS ---
DS: Admitting Diagnosis Discharge Date 07/22/2021 Admitting Diagnosis Acute CVA DS: Discharge Diagnosis Discharge Diagnosis (1) Acute CVA (cerebrovascular accident): Code(s): I63.9 - Cerebral infarction, unspecified Status: Acute Assessment and Plan: Patient presented with right-sided weakness that lasted for [address] on presentation was negative for acute findings with the sense of old infarct, consistent with patient's history of prior stroke. Noted that she was supposed to be on aspirin and Plavix due to this history but had not been taking this as she did not get this prescription refilled Follow-up MRI showed small acute infarct in the left frontoparietal region Carotid Doppler with <50% stenosis of the bilateral internal carotid arteries Head/neck CTA performed showed 0% stenosis of the proximal internal carotid arteries Echocardiogram with bubble study showed normal EF, no significant valvular disease, no evidence of intracardiac shunting The patient's symptoms resolved and she was at her baseline functional status She did have issues with word finding which has been ongoing since her previous stroke in November 2020. She was evaluated by speech therapy during her hospitalization and was referred for outpatient ST to continue therapy Lipid panel reviewed. Continue high intensity statin Begin aspirin and Plavix. Educated regarding importance of follow-up and medication compliance She was seen in consultation by Neurology during admission Educated extensively on smoking cessation as well as lifestyle and dietary modifications (2) Diabetes mellitus: Code(s): E11.9 - Type 2 diabetes mellitus without complications Status: Acute Assessment and Plan: A1c is 7.9. Blood sugars reviewed during admission were generally well controlled Continue home insulin regimen consisting of 12 units Lantus qHS and 6 units lispro with meals Continue Victoza Tight glycemic control encouraged. Instructed to monitor blood sugars at home with meals and at bedtime and follow-up with PCP for review and medication adjustment as needed (3) Hypertension: Code(s): I10 - Essential (primary) hypertension Status: Acute Assessment and Plan: Blood sugars were elevated on presentation but did improve prior to discharge She is not on any antihypertensive medications. States she stopped taking these after losing quite a bit of weight and no longer requiring medications for BP control Blood pressure was in the 130-140 systolic around time of discharge. She should monitor blood pressures at home and follow-up with PCP in 1 week for blood pressure check (4) Dyslipidemia: Code(s): E78.5 - Hyperlipidemia, unspecified Status: Acute Assessment and Plan: Lipid panel reviewed Continue high-intensity statin Provided instruction on dietary modifications (5) Tobacco abuse: Code(s): Z72.0 - Tobacco use Status: Acute Assessment and Plan: Patient smokes 1 pack per day Educated on smoking cessation for 5 minutes She is aware that continued tobacco use will increase her risk for stroke Patient reports she will attempt to quit smoking (6) Abnormal brain scan: Code(s): R94.02 - Abnormal brain scan Status: Acute Assessment and Plan: CT MRI of the brain showed stable appearance of sclerotic expansile lesion of right sphenoid bone Noted to be stable from prior imaging in November 2020 [place] to be most consistent with benign lesion such as fibrous dysplasia or Paget disease Outpatient follow-up with PCP for further monitoring DS: Summary Hospital Course Hospital Course: Date of admission: 07/21/21 Date of discharge: 07/22/21 Niya Lombardi is a 65 year old female with a history of hypertension, type diabetes mellitus, hyperlipidemia, tobacco abuse, and CVA in November 2020 with associated dysphasia who presented to the emergency departme
[2021-07-22 16:50] LABS: Glucose Point of Care 166 mg/dl (65-105)
[2021-07-22 16:59] LABS: Hemoglobin A1C 7.9 % (<5.7)
[2021-07-27 00:14] LABS: Vitamin D 1,25 (OH)2 Total 40 pg/mL (18-72); Vitamin D2 1,25 (OH)2 <8 pg/mL; Vitamin D3 1,25 (OH)2 40 pg/mL
== END 2021-07-22 17:50 | disposition home or self-care (01) ==
LOC: ANHED 15:20 → ANH3MEDSUR 17:00
PROVIDERS: Nurse Practitioner Adult Health; Admitting Provider Family Medicine; Emergency Provider Emergency Medicine; PCP Internal Medicine Infectious Disease; Visit Provider Physician Assistant
DX: I63.9 Cerebral infarction, unspecified (principal); R53.1 Weakness; R29.703 NIHSS score 3; I69.328 Other speech and language deficits following cerebral infarction; E78.5 Hyperlipidemia, unspecified; I10 Essential (primary) hypertension; E11.40 Type 2 diabetes mellitus with diabetic neuropathy, unspecified; J34.89 Other specified disorders of nose and nasal sinuses; M19.90 Unspecified osteoarthritis, unspecified site; F12.90 Cannabis use, unspecified, uncomplicated; F17.210 Nicotine dependence, cigarettes, uncomplicated; Z79.01 Long term (current) use of anticoagulants; Z79.84 Long term (current) use of oral hypoglycemic drugs; Z79.4 Long term (current) use of insulin; Z79.02 Long term (current) use of antithrombotics/antiplatelets; Z79.899 Other long term (current) drug therapy
CPT/HCPCS: 36415; 70450; 70496; 70498; 70553; 80048; 80053; 80061; 81003; 82652; 82948; 83036; 85025; 85610; 85730; 92523; 93005; 93306; 93880; 96365; 96372; 96375; 99285; A9270; A9577; G0378; G0379; J0131; J1650; J1815; Q9967

== ENCOUNTER 2022-01-23 09:23 | Observation (INO) | payer OTHER, SELFPAY ==
[2022-01-23] VITALS (25 sets, daily range): BP systolic 123–166; BP diastolic 42–78; PULSE 64–85; RESP 0–23; TEMP 36–36.9; O2SAT 93–100; BMI 30.4
--- NOTE | ~2022-01-23 | CT_ITS ---
EXAMINATION: CT brain wo con DATE: 01/23/2022 09:36 INDICATION: Confusion. TECHNIQUE: Computed tomography (CT) of the head was performed without intravenous contrast. The mA wa s adjusted according to patient size. Iterative reconstruction technique was employed. The dose-lengt h product was 605.33 mGy-cm. COMPARISON: Head CT 07/21/2021, 11/21/2020, brain MRI 07/22/2021 FINDINGS: There is an old infarct in left frontoparietal region. There is no intracranial hemorrhage, acute infarction, or abnormal intracranial mass lesion. The ventricles are normal in size. The orbit s are normal. The paranasal sinuses are clear. The mastoid air cells are normal. There is sclerosis i n the right middle skull base with bone expansion. IMPRESSION: 1. Old infarct in left frontoparietal region. 2. Sclerosis in the right middle skull base with bone expansion, stable from 11/21/20, most likely a b enign lesion such as fibrous dysplasia or Paget disease given the lack of interval change. 3. I discussed this case with Dr. Boyce. Reviewed, dictated and finalized at location A. IMPRESSION: 1. Old infarct in left frontoparietal region. 2. Sclerosis in the right middle skull base with bone expansion, stable from , most likely a benign lesion such as fibrous dysplasia or Paget disease g iven the lack of interval change. 3. I discussed this case with Dr. Boyce.
--- NOTE | ~2022-01-23 | US_ITS ---
EXAMINATION: US carotid duplex BI DATE: 01/24/2022 12:25 INDICATION: Left frontal lobe and frontoparietal region infarcts. TECHNIQUE: Grayscale, color Doppler, and pulsed Doppler images of the cervical carotid arteries were obtained. The degree of vessel stenosis is placed in one of the following categories: normal, <50%, 5 0-69%, >=70% but less than near-occlusion, near-occlusion, or total occlusion. Note that percent sten osis relative to normal distal artery lumen diameter is indirectly measured from velocity measurement s as described by Eitan, et al. Radiology 2003; 229:340-346. COMPARISON: Ultrasound 07/22/2021 FINDINGS: RIGHT: The right common carotid artery (CCA) peak systolic velocity (PSV) is 104 cm/s. The right internal ca rotid artery (ICA) PSV is 49 cm/s. The right ICA end-diastolic velocity (EDV) is 11 cm/s. The right I CA/CCA PSV ratio is 0.6. Grayscale and color Doppler images yield an estimate of <50% diameter reduct ion from plaque in the ICA. There is antegrade flow in the right vertebral artery. LEFT: The left CCA PSV is 96 cm/s. The left ICA PSV is 39 cm/s. The left ICA EDV is 11 cm/s. The left ICA/C CA PSV ratio is 1.2. Grayscale and color Doppler images yield an estimate of <50% diameter reduction from plaque in the ICA. There is antegrade flow in the left vertebral artery. IMPRESSION: 1. <50% stenosis in the right internal carotid artery. 2. <50% stenosis in the left internal carotid artery. Reviewed, dictated and finalized at location A.
--- NOTE | ~2022-01-23 | XR_ITS ---
EXAMINATION: XR chest 1V DATE: 01/23/2022 09:42 INDICATION: Cerebrovascular accident. TECHNIQUE: A single frontal view of the chest was obtained. COMPARISON: Chest single view 11/21/2020 FINDINGS: The chest demonstrates clear lungs without pneumonia, pleural effusion, or pneumothorax. Th e heart size is normal. IMPRESSION: 1. No acute cardiopulmonary disease. Reviewed, dictated and finalized at location A.
--- NOTE | ~2022-01-23 | MR_ITS ---
EXAMINATION: MR brain/brain stem wo/w con DATE: 01/24/2022 10:12 INDICATION: Confusion. TECHNIQUE: Magnetic resonance imaging (MRI) of the brain and brainstem was performed without and with 15 mL MultiHance intravenous contrast. COMPARISON: Brain MRI 07/22/2021, head CT 01/23/2022, 11/21/20 FINDINGS: There are old infarcts in the left frontal lobe and left frontoparietal region. There are s cattered areas of nonspecific increased T2-weighted signal intensity in the cerebral white matter, wh ich is within normal limits for the patient's age. There is no intracranial hemorrhage, acute infarct ion, or abnormal intracranial mass lesion. The ventricles are normal in size. There is a chronic expa nsile sclerotic mass in the right sphenoid bone. The orbits are normal. The mastoid air cells are nor mal. The paranasal sinuses are clear. IMPRESSION: 1. Old infarcts in the left frontal lobe and left frontoparietal region. 2. Expansile sclerotic mass in the right sphenoid bone, stable from 11/21/2020, most likely a benign l esion such as fibrous dysplasia or Paget disease. Reviewed, dictated and finalized at location A. IMPRESSION: 1. Old infarcts in the left frontal lobe and left frontoparietal region. 2. Expansile sclerotic mass in the right sphenoid bone, stable from 11/21/2020, most likely a benign lesion such as fibrous dysplasia or Paget disease.
--- NOTE | 2022-01-23 09:26 | ECG_ITS ---
Measurements Intervals [place] Rate: 70 P: 63 AL: 150 QRS: 18 QRSD: 88 T: 105 QT: 367 QTc: 397 Interpretive Statements SINUS RHYTHM ST-T WAVE ABNORMALITY IN HIGH LATERAL LEADS- CONSIDER ISCHEMIA ABNORMAL ECG COMPARED TO ECG 07/21/2021 14:47:57 ST-T WAVE ABNORMALITY IN HIGH LATERAL LEADS- CONSIDER ISCHEMIA NOW PRESENT Electronically Signed On 01-23-2022 10:18:28 CDT by Goyo Babb D.O.
[2022-01-23 09:36] LABS: Glucose Point of Care 229 mg/dl (65-105)
[2022-01-23 10:02] LABS: Alanine Aminotransferase 29 U/L (6-35); Albumin Level 4.4 g/dL (3.5-5.1); Alkaline Phosphatase 71 U/L (38-126); Anion Gap 11 mmol/L (8-16); Aspartate Amino Transferase 28 U/L (14-36); Bilirubin,Total 0.5 mg/dL (0.2-1.3); Blood Urea Nitrogen 14 mg/dL (7-17); Calcium 10.7 mg/dL (8.4-10.2); Carbon Dioxide 26 mmol/L (22-30); Chloride 105 mmol/L (98-107); Estimated CRCL calculation 66 ml/min; Estimated Glomerular Filt Rate > 60; Glucose 209 mg/dL (65-110); Potassium 3.8 mmol/L (3.4-5.0); Sodium 142 mmol/L (137-145)
[2022-01-23 10:03] LABS: Basophils Percent Auto 0.4 % (0.2-1.2); Eosinophils Absolute Auto 0.1 K/mm3 (0-0.3); Hematocrit 45.8 % (37.0-47.0); Hemoglobin 15.8 g/dL (12.0-15.0); Immature Granulocyte Absolute 0.03 K/mm3 (0.00-0.031); Immature Granulocyte Percent A 0.3 % (0-0.5); Lymphocytes Absolute Auto 2.79 K/mm3 (0.9-3.2); Lymphocytes Percent Auto 25.9 % (18.3-44.2); Mean Corpuscular HGB Conc 34.5 g/dl (32-36); Mean Corpuscular Hemoglobin 30.8 pg (26-34); Mean Corpuscular Volume 89.3 fl (80-100); Mean Platelet Volume 10.1 fl (7.4-10.4); Monocytes Absolute Auto 0.9 K/mm3 (0.1-0.6); Monocytes Percent Auto 8.3 % (2.6-8.5); Neutrophils Absolute Auto 6.9 K/mm3 (1.3-6.7); Neutrophils Percent Auto 64.1 % (45.5-73.1); Platelet Count Result 353 k/mm3 (150-375); Red Blood Count 5.13 M/mm3 (4.2-5.4); Red Cell Distribution Width 11.8 % (11.5-14.5); White Blood Count 10.8 K/mm3 (4.5-10.0)
[2022-01-23 10:09] LABS: Prothrombin Time 12.8 Seconds (11.1-14.7)
[2022-01-23 10:10] LABS: Partial Thromboplastin Time 25.3 SECONDS (22.3-36.8)
[2022-01-23 10:14] LABS: Troponin I < 0.012 ng/mL (0.000-0.034)
--- NOTE | 2022-01-23 11:32 | ED.NEUROSD ---
HPI - Neuro Symptoms/Deficit General Chief Complaint: Suspected CVA Stated Complaint: confusion since 0730 Time Seen by Provider: 01/23/22 09:28 Source: patient and RN notes reviewed Mode of arrival: ambulatory Limitations: no limitations History of Present Illness HPI Narrative: This is a 66 year old female who presents for evaluation of confusion. Patient states she woke up this morning around 4 am and she went to work around 5 30 am. She started to feel off at 730 am when she was having brain fog . 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 She denies having focal weakness, numbness, tingling, headache, blurred vision, or difficulty speaking. She reports history of 2 strokes in the past. . One episode she had right side waakness and her other stroke she had difficulty speaking. Related Data Home Medications Medication Instructions Recorded Confirmed insulin glargine 100 unit/mL (3 15 unit subcut BID 07/21/21 01/23/22 mL) subcutaneous pen (Lantus Solostar U-100 Insulin) insulin lispro 100 unit/mL 12 unit subcut AC 07/21/21 01/23/22 subcutaneous pen liraglutide 0.6 mg/0.1 mL (18 mg/3 0.6 mg subcut DAILY 07/21/21 01/23/22 mL) subcutaneous pen injector (Victoza 3-Ryan) aspirin 81 mg chewable tablet 81 mg PO DAILY 01/23/22 01/23/22 (Children's Aspirin) atorvastatin 40 mg tablet (Lipitor) 40 mg PO HS 01/23/22 01/23/22 dapagliflozin 10 mg tablet 10 mg PO DAILY 01/23/22 01/23/22 (Farxiga) lisinopril 5 mg tablet 5 mg PO DAILY 01/23/22 01/23/22 tramadol 50 mg tablet 100 mg PO BID 01/23/22 01/23/22 Allergies Allergy/AdvReac Type Severity Reaction Status Date / Time metformin AdvReac Diarrhea Verified 01/23/22 15:37 Review of Systems Review of Systems: CONSTITUTIONAL: Denies fever, chills, or sweats. EYES: Denies visual changes, redness, or discharge. ENT: Denies rhinorrhea, congestion, sore throat, or otalgia. CARDIOVASCULAR: Denies chest pain, palpitations, or edema. RESPIRATORY: Denies cough or dyspnea. GASTROINTESTINAL: Denies abdominal pain, nausea, vomiting, or diarrhea. GENITOURINARY: Denies dysuria or hematuria. SKIN: Denies rash or itching. MUSCULOSKELETAL: Denies back pain, joint pain, or myalgia. NEUROLOGIC: Denies headache, numbness, or weakness. PSYCHIATRIC: Denies anxiety or depression. All systems reviewed & are unremarkable except as noted in HPI and below PMFSH Past Medical History Medical History (Updated 01/23/22 @ 17:59 by Katie Duron PA-C) Cerebrovascular accident (07/2021) CTA head/ neck showed 0% stenosis of proximal internal carotid arteries. Echo with bubble study: Normal EF, no evidence of intracardiac shunting, no significant valvular disease. Chronic knee pain Depression with anxiety Dyslipidemia Hypertension Insulin dependent type 2 diabetes mellitus Osteoarthritis Tobacco dependence Surgical History Surgical History (Updated 01/23/22 @ 13:30 by Katie Duron PA-C) History of hysterectomy History of reversal of tubal ligation History of tubal ligation Social History Social History (Updated 01/23/22 @ 13:30 by Katie Duron PA-C) Social History: Surrogate medical decision maker: Code status: Full code. Smoking packs per day: 0.5 Smoking cigarettes per day: 10.0 Years smoked: 35 Smoking pack-years: 17.50 Smoking status: Current every day smoker Tobacco type: cigarettes Second hand tobacco smoke exposure: No Alcohol intake: former Substance use: never Substance use type: marijuana Spiritual care concerns: No Exam Narrative: GENERAL: Well-appearing, well-nourished, and in no acute distress. HEAD: Normocephalic, atraumatic EYES: PERRLA and EOMI, conjunctiva clear without discharge EARS: TM's clear bilaterally without erythema or dullness NOSE: Nares clear, no rhinorrhea or epistaxis THROAT:Mucous membranes moist, Oropharynx normal without erythe
[2022-01-23 12:11] LABS: Appearance Urine Clear (Clear); Bilirubin Urine Negative (Negative); Blood Urine Negative (Negative); Color Urine Yellow (Yellow); Glucose Urine UA 2+ mg/dL (Negative); Ketones Urine Negative (Negative); Leukocyte Esterase Ur Negative LEU/UL (Negative); Nitrate Urine Negative (Negative); Protein Urine Negative (Negative); Specific Grav Ur 1.015 (1.001-1.035); Urobilinogen Urine 0.2 mg/dL (<2.0); pH Urine 6.5 (5.0-9.0)
[2022-01-23 12:18] LABS: Mucus Urine Rare /lpf; Squamous Epithelial Cell Urine Rare /hpf (Few); WBC Urine 0-3 /hpf
[2022-01-23 12:22] LABS: Add Urine Microscopic? YES
--- NOTE | 2022-01-23 14:15 | PM.IMHP ---
H&P: HPI History of Present Illness Date/Time: 01/23/22 14:15 Chief Complaint: Dizziness and confusion. Narrative: This is a 66-year-old female smoker with history of stroke, hypertension, dyslipidemia, and diabetes who presented to the ED for evaluation of dizziness and confusion. She was in her usual state of health when she got up this morning at about 04:00 and she had to work about an hour and a half thereafter. 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 For example she was having difficulties entering a code on the ty pad and she felt confused as to how to use the register that she has used for years. She seems to have some mild word-finding issues as well which occurred with her previous stroke. At the time my evaluation her symptoms seem to have improved if not fully resolved. She was previously told that her stroke was likely related to poorly controlled diabetes. She states compliance with her home medications and reports that her glucose was right about 140 this morning and was 200 after her symptoms started today. She denies vertigo, focal weakness, paresthesias, visual changes, facial droop, and dysphagia. Review of Systems Review of Systems: 12 systems were reviewed. No fever, chills, or sweats. No recent cold or flu symptoms. No sick contacts. She does have peripheral neuropathy which is not new and is unchanged. No chest pain, pleuritic pain, or palpitations. No sensations of racing heart or fluttering. No history of cardiac dysrhythmia. Except as documented, all other systems were reviewed and are negative. [facility] Past Medical History Medical History (Updated 01/23/22 @ 17:59 by Katie Duron PA-C) Cerebrovascular accident (07/2021) CTA head/ neck showed 0% stenosis of proximal internal carotid arteries. Echo with bubble study: Normal EF, no evidence of intracardiac shunting, no significant valvular disease. Chronic knee pain Depression with anxiety Dyslipidemia Hypertension Insulin dependent type 2 diabetes mellitus Osteoarthritis Tobacco dependence Surgical History Surgical History (Updated 01/23/22 @ 13:30 by Katie Duron PA-C) History of hysterectomy History of reversal of tubal ligation History of tubal ligation Social History Social History (Updated 01/23/22 @ 17:59 by Katie Duron PA-C) Social History: Surrogate medical decision maker: Augusto Estevez, son. Code status: Full code. Smoking packs per day: 0.5 Smoking cigarettes per day: 10.0 Years smoked: 35 Smoking pack-years: 17.50 Smoking status: Current every day smoker Tobacco type: cigarettes Second hand tobacco smoke exposure: No Alcohol intake: former Substance use: never Substance use type: marijuana Additional living arrangements comments: Lives in [place]. Daughter occasionally stays with the patient. Additional occupation/education comments: [employer]. Spiritual care concerns: No Meds Home Medications and Allergies Home Medications Medication Instructions Recorded Confirmed Type insulin glargine 100 unit/mL (3 15 unit subcut BID 07/21/21 01/23/22 History mL) subcutaneous pen (Lantus Solostar U-100 Insulin) insulin lispro 100 unit/mL 12 unit subcut AC 07/21/21 01/23/22 History subcutaneous pen liraglutide 0.6 mg/0.1 mL (18 mg/3 0.6 mg subcut DAILY 07/21/21 01/23/22 History mL) subcutaneous pen injector (Victoza 3-Ryan) clopidogrel 75 mg tablet (Plavix) 75 mg PO DAILY #30 tabs 07/22/21 01/23/22 Rx aspirin 81 mg chewable tablet 81 mg PO DAILY 01/23/22 01/23/22 History (Children's Aspirin) atorvastatin 40 mg tablet (Lipitor) 40 mg PO HS 01/23/22 01/23/22 History dapagliflozin 10 mg tablet 10 mg PO DAILY 01/23/22 01/23/22 History (Farxiga) lisinopril 5 mg tablet 5 mg PO DAILY 01/23/22 01/23/22 History tramadol 50 mg ta
[2022-01-23 14:39] LABS: SARS-CoV-2 RNA PCR Negative
--- NOTE | 2022-01-23 15:15 | ADMGEN ---
This patient, Niya Lombardi, was admitted to [facility] Surg Room 324-01. Patient/family oriented to hospital policies and general routines including ID bracelet, bed and alarms, visiting hours, pain management, procedures, bathroom and other care routines, personal items, smoking policy, room service/diet, and visiting hours. Information on how to activate the Rapid Response Team has been discussed. Patient/Family are encouraged to report perceived risks to care and to ask questions if they do not understand what they are told or what they should do.
[2022-01-23] MEDS: SODIUM CHLORIDE 0.9% IV 1,000 ML 125 ML IV CONT ×2 (15:55→23:39)
[2022-01-23 16:30] LABS: Glucose Point of Care 124 mg/dl (65-105)
[2022-01-23 19:46] LABS: Glucose Point of Care 157 mg/dl (65-105)
[2022-01-23] MEDS: ATORVASTATIN 40 MG TABLET PO (20:23)
[2022-01-24 03:17] VITALS: PULSE 70
[2022-01-24 06:00] VITALS: BP 141/64; PULSE 68; RESP 18; TEMP 36.3; O2SAT 97
[2022-01-24 06:37] LABS: Hematocrit 42.6 % (37.0-47.0); Hemoglobin 14.4 g/dL (12.0-15.0); Mean Corpuscular HGB Conc 33.8 g/dl (32-36); Mean Corpuscular Hemoglobin 31.2 pg (26-34); Mean Corpuscular Volume 92.2 fl (80-100); Mean Platelet Volume 9.9 fl (7.4-10.4); Platelet Count Result 286 k/mm3 (150-375); Red Blood Count 4.62 M/mm3 (4.2-5.4); Red Cell Distribution Width 11.9 % (11.5-14.5); White Blood Count 8.8 K/mm3 (4.5-10.0)
[2022-01-24 06:43] LABS: Hemoglobin A1C 7.3 % (<5.7)
[2022-01-24 07:00] LABS: Anion Gap 12 mmol/L (8-16); Blood Urea Nitrogen 11 mg/dL (7-17); Calcium 8.5 mg/dL (8.4-10.2); Carbon Dioxide 23 mmol/L (22-30); Chloride 105 mmol/L (98-107); Estimated CRCL calculation 66 ml/min; Estimated Glomerular Filt Rate > 60; Glucose 122 mg/dL (65-110); Magnesium 1.8 mg/dL (1.6-2.3); Potassium 4.1 mmol/L (3.4-5.0); Sodium 140 mmol/L (137-145)
[2022-01-24 07:19] LABS: Thyroid Stimulating Hormone Reflex 0.998 uIU/mL (0.465-4.68)
[2022-01-24 08:05] LABS: Glucose Point of Care 128 mg/dl (65-105)
[2022-01-24 08:35] VITALS: PULSE 59
[2022-01-24] MEDS: INSULIN GLARGINE (*BKC) 100 UNITS/ML 15 UNITS SUB-Q (08:38)
[2022-01-24] MEDS: ASPIRIN 81 MG CHEWABLE TABLET PO (08:39)
[2022-01-24] MEDS: EMPAGLIFLOZIN 25 MG TABLET PO (08:39)
[2022-01-24] MEDS: lisinopriL 5 MG TABLET PO (08:39)
[2022-01-24] MEDS: CLOPIDOGREL BISULFATE 75 MG TABLET PO (08:39)
[2022-01-24 11:46] LABS: Glucose Point of Care 135 mg/dl (65-105)
[2022-01-24 12:00] VITALS: PULSE 69
--- NOTE | 2022-01-24 12:00 | PM.DS ---
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 She presented to the ER within 2 hours at which time she did not have any significant deficits and her brain CT did not show acute findings, noting a previous stroke. She is being admitted for close monitoring, brain MRI, and consultation with Neurology tomorrow. Continue aspirin 81 milligrams and at clopidogrel 75 milligrams daily. Continue atorvastatin 40 milligrams daily. (2) Confusion: Code(s): R41.0 - Disorientation, unspecified Status: Acute Assessment and Plan: As detailed above. Symptoms seem to have resolved. (3) Tobacco dependence: Code(s): F17.200 - Nicotine dependence, unspecified, uncomplicated Status: Acute Assessment and Plan: Smoking cessation is imperative in was discussed. I am not certain she is motivated, unfortunately. She denies the need for nicotine patch. (4) Insulin dependent type 2 diabetes mellitus: Code(s): E11.9 - Type 2 diabetes mellitus without complications; Z79.4 - half-way (current) use of insulin Status: Acute Assessment and Plan: Continue basal insulin. Initiate sliding scale insulin, Accu-Cheks, and hypoglycemic protocol. Check hemoglobin A1c. (5) Hypertension: Code(s): I10 - Essential (primary) hypertension Status: Acute Assessment and Plan: Blood pressures were reviewed and they are stable. Continue antihypertensives and monitor. (6) Dyslipidemia: Code(s): E78.5 - Hyperlipidemia, unspecified Status: Acute Assessment and Plan: Continue statin; LFTs within normal limits. DS: Summary Hospital Course Hospital Course: Patient is 66-year-old female with a past medical history of diabetes, CVA, depression anxiety who presented to the ED with confusion. 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 Patient stated that she was just in a brain fog and off. Head CT was negative for new stroke or bleed it did show an old stroke along with the MRI as well. Carotid Dopplers were performed. Carotid Dopplers from July not show any other abnormalities either her. Patient is currently on aspirin, Plavix, atorvastatin at home. Chest x-ray showed no acute cardiopulmonary disease. EKG shows sinus rhythm with no ST abnormalities. Echo from July showed an EF of 73% with grade 2 diastolic dysfunction and no valve disease. Patient stated that she feels fine and back to her normal self. She denies any chest pain, shortness of breath, nausea, vomiting, diarrhea, constipation, weakness or fatigue. Patient is ready to go and states that she feels back to her normal state of health at this time. Patient has been walking back and forth the bathroom. Her gait is stable at this time. Smoking cessation education was given. Patient does not seem to be confused at this time and seems to be doing really well. Blood pressures are controlled labs are normal patient is stable for discharge at this time. Time spent discussing smoking cessation with patient: 3 to 10 minutes Status at Discharge Functional status at discharge: independent ambulation Overall status at discharge: patient is progressing back to baseline Time Spent with Patient Time attestation: Total time spent providing and/or coordinating discharge services: 37 minutes Time spent: Greater than 30 minutes Specific discharge activities: Diagnostic testin
[2022-01-24] MEDS: INSULIN ASPART (*BKC) 100 UNITS/ML 12 UNITS SUB-Q (12:16)
== END 2022-01-24 14:20 | disposition home or self-care (01) ==
LOC: ANHED 12:03 → ANH3MEDSUR 15:46
PROVIDERS: Physician Assistant; Admitting Provider Family Medicine; Emergency Provider General Practice; PCP Internal Medicine Infectious Disease; Visit Provider Nurse Practitioner
DX: R41.0 Disorientation, unspecified (principal); R29.90 Unspecified symptoms and signs involving the nervous system; R42 Dizziness and giddiness; F17.210 Nicotine dependence, cigarettes, uncomplicated; E11.9 Type 2 diabetes mellitus without complications; I11.0 Hypertensive heart disease with heart failure; I50.30 Unspecified diastolic (congestive) heart failure; E78.5 Hyperlipidemia, unspecified; F41.8 Other specified anxiety disorders; G37.8 Other specified demyelinating diseases of central nervous system; R94.31 Abnormal electrocardiogram [ECG] [EKG]; Z20.822 Contact with and (suspected) exposure to COVID-19; Z86.73 Personal history of transient ischemic attack (TIA), and cerebral infarction without residual deficits; Z79.84 Long term (current) use of oral hypoglycemic drugs; Z79.4 Long term (current) use of insulin; Z79.891 Long term (current) use of opiate analgesic; Z79.02 Long term (current) use of antithrombotics/antiplatelets; Z79.82 Long term (current) use of aspirin; Z79.899 Other long term (current) drug therapy
CPT/HCPCS: 36415; 70450; 70553; 71045; 80048; 80053; 81001; 82948; 83036; 83735; 84443; 84484; 85025; 85027; 85610; 85730; 93005; 93880; 96360; 96361; 99285; A9270; A9577; C9803; G0378; J1815; J7030; U0003; U0005

== ENCOUNTER 2023-02-13 12:11 | Emergency (ER) | payer OTHER, SELFPAY ==
--- NOTE | ~2023-02-13 | CT_ITS ---
EXAMINATION: CT brain wo con DATE: 02/13/2023 13:29 INDICATION: Patient fell and struck left cheek. Small abrasion. Neck pain. TECHNIQUE: Computed tomography (CT) of the head was performed without intravenous contrast. The mA wa s adjusted according to patient size. Iterative reconstruction technique was employed. Exam dose: 52 9.67 mGy-cm total exam DLP. COMPARISON: 01/23/2022 CT brain 01/24/2022 MRI brain FINDINGS: Bilateral vertebral artery and carotid siphon internal carotid artery calcifications. There is nonspecific diminished attenuation cerebral white matter, likely due to chronic small vessel ischemic changes. Small focal chronic infarct, left frontal parietal area. No intracranial mass lesion or hemorrhage or recent cerebrovascular accident, midline shift or mass e ffect is evident. No subdural or epidural hematoma. Stable chronic sclerosis at the base of the middle cranial fossa and right sphenoid area, likely due to fibrous dysplasia or less likely Paget's disease. No fracture or bone destruction of the cranial vault. The mastoid air cells and paranasal sinuses are well aerated. IMPRESSION: Cerebral atherosclerosis and chronic small vessel ischemic changes of the cerebral white matter Old focal left frontoparietal infarct Reviewed, dictated and finalized at Location A. Reviewed, dictated and finalized at location A.
--- NOTE | ~2023-02-13 | XR_ITS ---
EXAM: XR wrist RT min 3V DATE: 02/13/2023 13:47 HISTORY: fall DISCOMFORT AFTER FALL . COMPARISON: None available. FINDINGS: Decreased mineralization. No fracture or dislocation. No lytic or blastic lesion. Mild sca ttered degenerative change. No erosion or periosteal change. Soft tissues within normal limits. IMPRESSION: No acute osseous finding in the right wrist. Reviewed, dictated and finalized at location K.
--- NOTE | ~2023-02-13 | XR_ITS ---
EXAM: XR_KNEE1-2VRT_CR, XR_KNEE1-2VLT_CR DATE: 02/13/2023 13:46 HISTORY: fall DISCOMFORT AFTER FALL . COMPARISON: 02/13/2023. FINDINGS: Decreased mineralization. No fracture or dislocation. No lytic or blastic lesion. Tricompa rtmental bilateral knee osteoarthritis, severe in the medial compartments. Moderate bilateral knee audi int effusions. Quadriceps enthesopathy. No erosion or periosteal change. Soft tissues within normal l imits. IMPRESSION: No acute osseous finding in the right or left knees. Reviewed, dictated and finalized at location K. IMPRESSION: No acute osseous finding in the right or left knees.
--- NOTE | ~2023-02-13 | CT_ITS ---
EXAMINATION: CT cervical spine wo con DATE: 02/13/2023 13:29 INDICATION: Fall. Neck pain. TECHNIQUE: Computed tomography (CT) of the cervical spine was performed without intravenous contrast. Automated exposure control and iterative reconstruction technique were employed. Exam dose: 426.67 mGy-cm total exam DLP. COMPARISON: None FINDINGS: There is reversal of cervical curvature which may be due to muscle spasm. There is degenerative change at the articulation of the anterior arch of C1 and the odontoid process of C2. There is degenerative change throughout the apophyseal joints of the cervical spine. Moderately severe degenerative disc disease at C5-6 and C6-7 and mild degenerative disc disease at th e remaining lumbar interspaces. No fracture or dislocation or locked facet or prevertebral soft tissue swelling is detected. IMPRESSION: Reversal of cervical curvature Moderate cervical spondylosis No fracture or dislocation or locked facet Reviewed, dictated and finalized at Location A. Reviewed, dictated and finalized at location A.
[2023-02-13 12:15] VITALS: BP 160/81; PULSE 98; RESP 18; TEMP 36.6; O2SAT 99
--- NOTE | 2023-02-13 14:08 | ED.GENADULT ---
HPI - General Adult General Chief complaint: Fall Stated complaint: fell at work today Time Seen by Provider: 02/13/23 12:42 History of Present Illness HPI narrative: Niya Lombardi is a 67 y/o female who presents with reports of having a ground level fall at about 1045 on carpet. She states that she missed her step and fell forward on to her knees, left wrist and her face. She states that most of her pain is to her knees and her right wrist. She did not have LOC. she states that she had her glassed on at the time and that cut her left cheek. She states that she is on a blood thinner and wanted to get checked out. Related Data Home Medications Medication Instructions Recorded Confirmed insulin glargine 100 unit/mL (3 15 unit subcut BID 07/21/21 01/23/22 mL) subcutaneous pen (Lantus Solostar U-100 Insulin) insulin lispro 100 unit/mL 12 unit subcut AC 07/21/21 01/23/22 subcutaneous pen liraglutide 0.6 mg/0.1 mL (18 mg/3 0.6 mg subcut DAILY 07/21/21 01/23/22 mL) subcutaneous pen injector (Victoza 3-Ryan) aspirin 81 mg chewable tablet 81 mg PO DAILY 01/23/22 01/23/22 (Children's Aspirin) atorvastatin 40 mg tablet (Lipitor) 40 mg PO HS 01/23/22 01/23/22 dapagliflozin propanediol 10 mg 10 mg PO DAILY 01/23/22 01/23/22 tablet (Farxiga) lisinopril 5 mg tablet 5 mg PO DAILY 01/23/22 01/23/22 tramadol 50 mg tablet 100 mg PO BID 01/23/22 01/23/22 Allergies Allergy/AdvReac Type Severity Reaction Status Date / Time metformin AdvReac Diarrhea Verified 02/13/23 12:15 Review of Systems Review of Systems: CONSTITUTIONAL: Denies fever, chills, or sweats. EYES: Denies visual changes, redness, or discharge. ENT: Denies rhinorrhea, congestion, sore throat, or otalgia. CARDIOVASCULAR: Denies chest pain, palpitations, or edema. RESPIRATORY: Denies cough or dyspnea. GASTROINTESTINAL: Denies abdominal pain, nausea, vomiting, or diarrhea. GENITOURINARY: Denies dysuria or hematuria. SKIN: Denies rash or itching. MUSCULOSKELETAL: Complains of pain to her right wrist, bilateral knees, denies pain to face or head. NEUROLOGIC: Denies headache, numbness, dizziness, or weakness. PSYCHIATRIC: Denies anxiety or depression. [facility] Past Medical History Medical History Cerebrovascular accident (07/2021) CTA head/ neck showed 0% stenosis of proximal internal carotid arteries. Echo with bubble study: Normal EF, no evidence of intracardiac shunting, no significant valvular disease. Chronic knee pain Depression with anxiety Dyslipidemia Hypertension Insulin dependent type 2 diabetes mellitus Osteoarthritis Tobacco dependence Surgical History Surgical History History of hysterectomy History of reversal of tubal ligation History of tubal ligation Social History Social History Social History: Surrogate medical decision maker: Augusto Estevez, son. Code status: Full code. Smoking packs per day: 0.5 Smoking cigarettes per day: 10.0 Years smoked: 35 Smoking pack-years: 17.50 Smoking status: Current every day smoker Tobacco type: cigarettes Second hand tobacco smoke exposure: No Alcohol intake: former Substance use: never Substance use type: marijuana Additional living arrangements comments: Lives in [place]. Daughter occasionally stays with the patient. Additional occupation/education comments: [employer]. Spiritual care concerns: No Exam Narrative: GENERAL: Well-appearing, well-nourished, and in no acute distress. HEAD: Normocephalic, atraumatic. EYES: PERRLA and EOMI. ENT: Nares clear, no rhinorrhea or epistaxis. Mucous membranes moist. Oropharynx without tonsillar hypertrophy exudate or other lesions. NECK: Supple. No adenopathy or masses. No carotid bruits or JVD CHEST: Clear to auscultation. No respiratory distress. No wheez
== END 2023-02-13 14:49 | disposition home or self-care (01) ==
PROVIDERS: Emergency Provider Nurse Practitioner Family; PCP Internal Medicine Infectious Disease
DX: S69.91XA Unspecified injury of right wrist, hand and finger(s), initial encounter (principal); M17.0 Bilateral primary osteoarthritis of knee; I10 Essential (primary) hypertension; E11.9 Type 2 diabetes mellitus without complications; E78.5 Hyperlipidemia, unspecified; Z86.73 Personal history of transient ischemic attack (TIA), and cerebral infarction without residual deficits; Z90.710 Acquired absence of both cervix and uterus; F17.210 Nicotine dependence, cigarettes, uncomplicated; I67.2 Cerebral atherosclerosis; M47.812 Spondylosis without myelopathy or radiculopathy, cervical region; Z79.82 Long term (current) use of aspirin; Z79.4 Long term (current) use of insulin; Z79.85 Long-term (current) use of injectable non-insulin antidiabetic drugs; Z79.84 Long term (current) use of oral hypoglycemic drugs; W01.0XXA Fall on same level from slipping, tripping and stumbling without subsequent striking against object, initial encounter
CPT/HCPCS: 70450; 72125; 73110; 73560; 99284

== ENCOUNTER 2025-01-05 09:21 | Emergency (ER) | payer MEDICARE, SELFPAY ==
--- NOTE | 2025-01-05 09:32 | ED.FEMALEGU ---
HPI - Female Genitourinary General Chief complaint: Urogenital-Female Stated complaint: itching/burning in private area Time Seen by Provider: 01/05/25 09:24 Source: patient Mode of arrival: ambulatory Limitations: no limitations History of Present Illness HPI Narrative: Niya is a 69-year-old female patient presenting to the clinic today with complaints of vaginal itching and burning. She reports patient is diabetic. When asked what her blood sugars have been she has is ?pretty high?. Has not been keeping a tight control or checking her blood sugars regularly. She has not been keeping a tight control on her blood sugars and they have been very high. States that she is also having some burning with urination. Denies any fevers, chills, body aches, back pain, or abdominal pain. No nausea or vomiting. No concern for STIs. Related Data Home Medications ?Medication ?Instructions ?Recorded ?Confirmed ?Last Taken ?Type insulin glargine 100 unit/mL (3 15 unit subcut BID 07/21/21 01/23/22 07/20/21 21:00 History mL) subcutaneous pen (Lantus Solostar U-100 Insulin) aspirin 81 mg chewable tablet 81 mg PO DAILY 01/23/22 01/23/22 Unknown History (Children's Aspirin) atorvastatin 40 mg tablet (Lipitor) 40 mg PO HS 01/23/22 01/23/22 Unknown History dapagliflozin propanediol 10 mg 10 mg PO DAILY 01/23/22 01/23/22 Unknown History tablet (Farxiga) lisinopril 5 mg tablet 5 mg PO DAILY 01/23/22 01/23/22 Unknown History insulin aspart subcut 01/05/25 Unknown History (niacinamide)(U-100) 100 unit/mL(3 mL) subcutaneous pen (Fiasp FlexTouch U-100 Insulin) semaglutide 2 mg/dose (8 mg/3 mL) mg subcut 01/05/25 Unknown History subcutaneous pen injector (Ozempic) Allergies Allergy/AdvReac Type Severity Reaction Status Date / Time metformin AdvReac Diarrhea Verified 01/05/25 09:40 Review of Systems Review of Systems: Pertinent positives per HPI. Patient denies any fever, chills, rash, headache, visual changes, dizziness, cough, runny nose, sore throat, shortness of breath, chest pain, palpitations, nausea, vomiting, diarrhea, constipation, abdominal pain PMFSH Past Medical History Medical History Depression with anxiety Tobacco dependence Insulin dependent type 2 diabetes mellitus Cerebrovascular accident (07/2021) CTA head/ neck showed 0% stenosis of proximal internal carotid arteries. Echo with bubble study: Normal EF, no evidence of intracardiac shunting, no significant valvular disease. Osteoarthritis Dyslipidemia Hypertension Chronic knee pain Surgical History Surgical History History of tubal ligation History of hysterectomy History of reversal of tubal ligation Social History Social History Social History: Surrogate medical decision maker: Augusto Estevez, ang. Code status: Full code. Smoking packs per day: 0.5 Smoking cigarettes per day: 10.0 Years smoked: 35 Smoking pack-years: 17.50 Smoking status: Current every day smoker Tobacco type: cigarettes Second hand tobacco smoke exposure: No Alcohol intake: former Substance use: never Substance use type: marijuana Additional living arrangements comments: Lives in [place]. Daughter occasionally stays with the patient. 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 Spiritual care concerns: No Comments At the time of my signature, I reviewed and agree with the nursing past medical, surgical, social, and family history. There is no relevant family history pertinent to the patient complaint. Exam Narrative: General: Well-developed, well nourished, in no apparent distress. Head: Normocephalic, atraumatic. Cardio: Regular rate and rhythm, s1 and s2 normal, no murmur appreciated. Resp: Clear to auscultation bilaterally, no rhonchi, rales, wheezing or rubs. Abdomen: Soft, pliable, bowel sounds present in all quadrants, mildly suprapubic tender to palpation, no organomegly, no CVAT tenderness. : Deferred Course Course Emergency Course: Portions of this record may have been created with voice recognition software. Level of Care: Express Care Visit Vital Signs Vital signs: Vital Signs Temperature 36.2 C L 01/05/25 09:35 Pulse Rate 81 01/05/25 09:35 Respiratory Rate 16 01/05/25 09:35 Blood Pressure 133/63 01/05/25 09:35 Pulse Oximetry 95 01/05/25 09:35 Oxygen Delivery Room Air 01/05/25 09:35 Temperature 36.2 C L 01/05/25 09:35 Pulse Rate 81 01/05/25 09:35 Respiratory Rate 16 01/05/25 09:35 Blood Pressure 133/63 01/05/25 09:35 Pulse Oximetry 95 01/05/25 09:35 Oxygen Delivery Room Air 01/05/25 09:35 Vital signs reviewed MDM - Female Genitourinary MDM Narrative Medical decision making narrative: At the time of visit patient is resting comfortably on the exam table. Patient appears to be nontoxic. Complaints of vaginal itching and burning. She reports patient is diabetic. She has not been keeping a tight control on her blood sugars and they have been very high. States that she is also having some burning with urination. Denies any fevers, chills, body aches, back pain, or abdominal pain. No nausea or vomiting. No concern for STIs. Urinalysis dip ordered. On exam patient has no CVAT tenderness, bowel sounds present all 4 quadrants, very minimal discomfort over the suprapubic area, exam deferred. Labs: Urine shows trace of leukocytes, trace of blood, and 3+ glucose. Will send urine for culture Plan: I suspect patient likely has a vaginal yeast infection. Urinalysis shows trace of leukocytes and trace of blood with 3+ glucose. We will send that for culture. Will cover patient with Macrobid for possible UTI. Supportive measures were discussed with the patient and they voiced understanding discharge instructions and agrees to treatment plan. Return precautions reviewed Differential Diagnosis Differential diagnosis: Likely urinary tract infection, bacterial vaginosis, vaginitis, cystitis and other (Vaginal yeast infection, glucosuria) Lab Data Labs: Lab Results 01/05/25 Range/Units 09:47 POC Urine Color Yellow POC Urine Clarity Clear POC Urine pH 5.5 POC Ur Specif Edison 1.010 POC Urine Protein Negative (Negative) POC Ur Glucose (UA) 3+ (Negative) POC Urine Ketones Negative (Negative) POC Urine Blood Trace (Negative) POC Urine Nitrite Negative (Negative) POC Urine Bilirubin Negative (Negative) POC Urine Urobilinogen 0.2 POC U Leukocyte Esteras Trace (Negative) Discharge Plan Discharge Clinical Impression: Dysuria, Vaginal yeast infection Patient Disposition: Home Condition: Stable Instructions: Antibiotic Form, Yeast Infection (ED), Dysuria (ED) Additional Instructions: Keep a tight control on your blood sugar Urinalysis shows trace of leukocytes, trace of blood, and 3+ glucose. We will send urine for culture Take Macrobid and Diflucan as prescribed Increase fluids and stay well hydrated Wipe front to back. May use wet wipes. Avoid tub baths If sexually active- pee before and after intercourse. Wear cotton panties Avoid tight clothing up against the genitals Follow up with your PCP in 1 week if symptoms persist. Patient Language: Tunisian Prescriptions: New fluconazole 150 mg tablet 150 mg PO ONCE Qty: 2 0RF Rx Instructions: as a single dose. May repeat in 72 hours if needed. nitrofurantoin monohyd/m-cryst [Macrobid] 100 mg capsule 100 mg PO Q12H 5 Days Qty: 10 0RF Rx Instructions: must administer with a meal/food No Action Fiasp FlexTouch U-100 Insulin 100 unit/mL (3 mL) insulin pen SUBCUT Ozempic 2 mg/dose (8 mg/3 mL) pen injector SUBCUT lisinopril 5 mg Tablet 5 mg PO DAILY dapagliflozin propanediol [Farxiga] 10 mg Tablet 10 mg PO DAILY atorvastatin [Lipitor] 40 mg tablet 40 mg PO HS aspirin [Children's Aspirin] 81 mg tablet,chewable 81 mg PO DAILY insulin glargine [Lantus Solostar U-100 Insulin] 100 unit/mL (3 mL) insulin pen 15 unit subcut BID clopidogrel [Plavix] 75 mg tablet 75 mg PO DAILY Qty: 30 0RF Follow-up/Referrals: David,Janessa Kellogg [Primary Care Provider] Time of Disposition: 09:52 Quality NIHSS Nursing Documentation ED NIHSS nursing documentation: reviewed/agree
[2025-01-05 09:35] VITALS: BP 133/63; PULSE 81; RESP 16; TEMP 36.2; O2SAT 95
[2025-01-05 09:50] LABS: EDUAAPPEAR Clear; EDUABILI Negative (Negative); EDUABLOOD Trace (Negative); EDUACOLOR1 Yellow; EDUAGLUCOSE 3+ (Negative); EDUAKETONE Negative (Negative); EDUALEUKO Trace (Negative); EDUANITRATE Negative (Negative); EDUAPH 5.5; EDUAPROTEIN Negative (Negative); EDUASPGRAVITY 1.010; EDUAUROBILI 0.2
== END 2025-01-05 10:09 | disposition home or self-care (01) ==
PROVIDERS: Emergency Provider Nurse Practitioner Family; PCP Internal Medicine Infectious Disease
DX: R30.0 Dysuria (principal); B37.31 Acute candidiasis of vulva and vagina; F17.210 Nicotine dependence, cigarettes, uncomplicated; Z86.73 Personal history of transient ischemic attack (TIA), and cerebral infarction without residual deficits; I10 Essential (primary) hypertension; E11.9 Type 2 diabetes mellitus without complications; Z79.4 Long term (current) use of insulin; Z79.85 Long-term (current) use of injectable non-insulin antidiabetic drugs; E78.5 Hyperlipidemia, unspecified; M19.90 Unspecified osteoarthritis, unspecified site; Z79.82 Long term (current) use of aspirin; Z79.01 Long term (current) use of anticoagulants
CPT/HCPCS: 81003; 87086; 99213; G0463

== ENCOUNTER 2025-02-10 02:37 | Emergency (ER) | payer MEDICARE, MEDICAID, SELFPAY ==
--- NOTE | ~2025-02-10 | XR_ITS ---
Examination: XR knee LT 3V Clinical History: pain, fall Comparison: X-rays 02/13/2023 Technique: 3 views left knee Findings/impression: 1. Suprapatellar joint effusion. 2. Nondisplaced transverse fracture through patella. 3. Severe medial compartment joint space narrowing. Mild marginal osteophytes. 4. Mild lateral femoral subluxation relative to tibia. Reviewed, dictated and finalized at location R.
--- OUTSIDE RECORDS SUMMARY | 2025-02-10 02:39 | XMS_ITS | Clinical Summary ---
Author Organization [facility] [employer] Address [address] [place] [address] Care Team Providers Care Manufacturing Analyst Name Role Phone [facility] Primary Care Provider Source Comments [facility] [employer],non-owned Affiliates and Associated Physician Practices is amultiple site organization consisting of ambulatory clinics and hospital sitesin [place], [place], [place] and [place]. This disclosure is being madepursuant to the Care Everywhere program and may not contain all information available regarding this patient. Last updated 18.[facility] [employer] Allergies No known active allergies Medications * Be aware that medications may not be up to date on this document. Alwaysverify current medications with the patient. 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 Social History Tobacco Use Types Packs/Day Years Used Date Smoking Tobacco: Every Day Smokeless Tobacco: Never Tobacco Cessation:Ready to Q uit: No; Counseling Given: Yes PHQ-2 Answer Date Recorded PHQ2 TOTAL SCORE 0 11/22/2020 Comments Unknown Sex and Gender Information Value Date Recorded Sex Assigned at Not on file Legal Sex Female 12:44 PM CDT Gender Identity Not on file Sexual Orientation Not on file Last Filed Vital Signs Vital Sign Reading Time Taken Comments Blood Pressure 148/72 11/25/2020 8:57 AM CDT Pulse 65 11/25/2020 8:57 AM CDT Temperature 36.6 C (97.9 F) 11/25/2020 8:57 AM CDT Respiratory Rate 16 11/25/2020 4:59 AM CDT Oxygen Saturation 100% 11/25/2020 8:57 AM CDT Inhaled Oxygen Concentration - - Weight 78.6 kg (173 lb 4.8 oz) 11/25/2020 4:00 A M CDT Height 157.5 cm (5' 2) 11/21/2020 2:50 PM CDT Body Mass Index 31.7 11/21/2020 2:50 PM CDT Plan of Treatment Health Maintenance Due Date Last Done Comments BONE DENSITY TESTING 1955 COLOGUARD (AGES 45-75) - COLON CA SCREENING 1956 COLON MONITORING 1956 COLONOSCOPY - COLON CA SCREENING 1956 CT COLONOGRAPHY - COLON CA SCREENING 1956 Colorectal Cancer Screening 1956 FIT - COLON CA SCREENING 1956 FLEX SIG - COLON CA SCREENING 1956 MAMMOGRAM 1956 HEPATITIS C SCREENING 11/27/1974 DTAP/TDAP/TD VACCINES (1 - Tdap) 12/02/1975 PNEUMOCOCCAL VACCINE 50+ (1 of 2 - PCV) 12/02/1975 ZOSTER VACCINE (1 of 2) 2006 DEPRESSION SCREENING 05/09/2024 MEDICARE AWV CALENDAR YEAR 2024 COVID-19 VACCINE (3 - 2024- season) 2025 10/04/2020, 09/06/2020 INFLUENZA VACCINE (#1) 2025 , 02/22/2018, 01/06/2017, Additional history exists Respiratory Syncytial Virus (RSV) Vaccine Pt: or over 60 yrs (1 - 1-dose 75+ series) 12/02/2031 HEPATITIS B VACCINE Aged Out No longe r eligible based on patient's age to complete this topic HIB VACCINE Aged Out No longer eligi ble based on patient's age to complete this topic HPV VACCINE Aged Out No longer eligi ble based on patient's age to complete this topic MENINGOCOCCAL (Group B) VACCINE SHARED DECISION-MAKING Aged Out No longer eligible based on patient's age to complete this topic MENINGOCOCCAL GROUPS A/C/Y/W VACCINE Aged Out No longer eligible based on patient's age to complete this topic Insurance [facility] MEDICARE [facility] MANAG[facility] MEDICARE ADV Advance Directives * Full Code (Latest Code Status on File) Date Activated Date Inactivated Comments 11/21/2020 3:53 PM 11/25/2020 1:54 PM Care Teams Manufacturing Analyst Relationship Specialty Start Date End Date [facility] [address] [place] [address] PCP - General Family Medicine 11/24/20
[2025-02-10 02:47] VITALS: BP 164/91; PULSE 88; RESP 22; TEMP 36.6; O2SAT 100
--- NOTE | 2025-02-10 05:56 | ED.LOWEXIN ---
HPI - Extremity Injury (Lower) General Chief Complaint: Extremity Injury, Lower Stated Complaint: Knee pain Time Seen by Provider: 02/10/25 05:44 Source: patient Mode of arrival: ambulatory Limitations: no limitations History of Present Illness HPI Narrative: Patient presents with report of left knee pain after she tripped and fell landing directly on her anterior knee. Pain and swelling immediately followed. Denies any paresthesias. She has not taken any medications prior to arrival. She uses a cane at baseline. Pain is along/throughout the entire anterior surface of the knee joint with some slight extension laterally and medially. No pain posteriorly/the popliteal space. Related Data Home Medications ?Medication ?Instructions ?Recorded ?Confirmed ?Last Taken ?Type insulin glargine 100 unit/mL (3 15 unit subcut BID 07/21/21 01/23/22 07/20/21 21:00 History mL) subcutaneous pen (Lantus Solostar U-100 Insulin) aspirin 81 mg chewable tablet 81 mg PO DAILY 01/23/22 01/23/22 Unknown History (Children's Aspirin) atorvastatin 40 mg tablet (Lipitor) 40 mg PO HS 01/23/22 01/23/22 Unknown History dapagliflozin propanediol 10 mg 10 mg PO DAILY 01/23/22 01/23/22 Unknown History tablet (Farxiga) lisinopril 5 mg tablet 5 mg PO DAILY 01/23/22 01/23/22 Unknown History insulin aspart subcut 01/05/25 Unknown History (niacinamide)(U-100) 100 unit/mL(3 mL) subcutaneous pen (Fiasp FlexTouch U-100 Insulin) semaglutide 2 mg/dose (8 mg/3 mL) mg subcut 01/05/25 Unknown History subcutaneous pen injector (Ozempic) Allergies Allergy/AdvReac Type Severity Reaction Status Date / Time metformin AdvReac Diarrhea Verified 02/10/25 02:37 [facility] Past Medical History Medical History Ambulates with cane Depression with anxiety Tobacco dependence Insulin dependent type 2 diabetes mellitus Cerebrovascular accident (07/2021) CTA head/ neck showed 0% stenosis of proximal internal carotid arteries. Echo with bubble study: Normal EF, no evidence of intracardiac shunting, no significant valvular disease. Osteoarthritis Dyslipidemia Hypertension Chronic knee pain Surgical History Surgical History History of tubal ligation History of hysterectomy History of reversal of tubal ligation Social History Social History Social History: Surrogate medical decision maker: Augusto Estevez, son. Code status: Full code. Smoking packs per day: 0.5 Smoking cigarettes per day: 10.0 Years smoked: 35 Smoking pack-years: 17.50 Smoking status: Current every day smoker Tobacco type: cigarettes Second hand tobacco smoke exposure: No Alcohol intake: former Substance use: never Substance use type: marijuana Additional living arrangements comments: Lives in [place]. Daughter occasionally stays with the patient. 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 Spiritual care concerns: No Exam Narrative: GENERAL: Well-appearing, well-nourished, and in mild to moderate acute distress. HEAD: Normocephalic, atraumatic. EYES: Non injected, non icteric ENT: Nares clear, no rhinorrhea or epistaxis. Gross auditory acuity intact. NECK: Supple. No meningismus. CHEST: Speaking in full sentences. No respiratory distress. HEART: Regular rate and rhythm. . ABDOMEN: Soft, nondistended. EXTREMITIES:Swelling throughout left knee. Skin intact except for mild abrasion. No active bleeding. No TTP of popliteal space of lateral/medial joint line. 5/5 strength with left ankle dorsiflexion plantar flexion. Patient experiences pain in doing so but is able to demonstrate slight flexion and extension isolated at the left knee. SKIN: Warm, dry, no rash. NEURO: No focal deficits. Alert and oriented. Answering questions. Following commands. Normal speech without aphasia or dysarthria. Sensation intact throughout left lower extremity. PSYCH: Normal mood and affect. Course Vital Signs Vital signs: Vital Signs Temperature 97.8 F 02/10/25 02:47 Pulse Rate 88 02/10/25 02:47 Respiratory Rate 22 H 02/10/25 02:47 Blood Pressure 164/91 H 02/10/25 02:47 Pulse Oximetry 100 02/10/25 02:47 Oxygen Delivery Room Air 02/10/25 02:47 Temperature 97.8 F 02/10/25 02:47 Pulse Rate 80 02/10/25 07:00 Respiratory Rate 16 02/10/25 07:00 Blood Pressure 121/49 L 02/10/25 07:00 Pulse Oximetry 96 02/10/25 07:00 Oxygen Delivery Room Air 02/10/25 02:47 MDM - Extremity Injury (Lower) MDM Narrative Medical decision making narrative: Patient presents with left anterior knee pain after tripping and falling and landing directly on the knee. Immediately experienced pain and swelling. Ambulates with a cane at baseline. In the emergency department she is afebrile with vital signs that show mild tachypnea as well as hypertension. There is swelling on examination however neurovascularly intact and patient is able to demonstrate intact flexor and extensor mechanisms. Patellar fracture as below. Preferred pharmacy [facility]. Another dose of narcotic medication ordered as patient still in pain. Discussed the role of [id number] medications as well as narcotic medication for breakthrough pain. She verifies understanding and is in agreement. Discussed risks and benefits. Discussed with on-call orthopedic surgeon Dr Fry as is his preference that he be notified. Concurs with knee immobilizer and full weight bearing status and pain control and follow up outpatient. Otherwise stable for discharge. Differential Diagnosis Differential diagnosis: Likely acute internal derangement of knee, fracture of femur and other (tibial plateau fracture; patellar fracture; considered tendon rupture/injury) Imaging Data Attestation: I personally reviewed and interpreted this imaging study as follows: My impression: Diminished space between bones concerning for arthritis. There is also discontinuity but of the posterior patellar surface on my independent interpretation of x-ray. Radiologist's impression: XR Left Knee STat Rad: prior 02/13/23 Patellar nondisplaced acute fracture. Edema knee joint effusion Consider CT Findings/impression: 1. Suprapatellar joint effusion. 2. Nondisplaced transverse fracture through patella. 3. Severe medial compartment joint space narrowing. Mild marginal osteophytes. 4. Mild lateral femoral subluxation relative to tibia. Discharge Plan Discharge Clinical Impression: Acute pain of left knee, Suprapatellar swelling of knee joint Fall Qualifiers: Encounter type: initial encounter Qualified Code(s): W19.XXXA - Unspecified fall, initial encounter Closed transverse fracture of patella Qualifiers: Encounter type: initial encounter Fracture alignment: nondisplaced Laterality: left Qualified Code(s): S82.035A - Nondisplaced transverse fracture of left patella, initial encounter for closed fracture Patient Disposition: Home Condition: Stable Instructions: Antibiotic Form, Narcotic Safety (ED), Patellar Fracture (ED), Fall Prevention (ED), Knee Immobilizer (ED) Additional Instructions: Keep the knee immobilizer in place. You can otherwise be full weight bearing on this. Follow up with the orthopedic surgeon below. Call the office tomorrow morning to schedule follow up. Acetaminophen/Tylenol (maximum 4000 mg per day) is safe to take with NSAIDs (ibuprofen/Motrin) for pain relief. For breakthrough pain, opiate/narcotic pain medications have been prescribed. Return to the ED with new/worsening symptoms. Patient Language: Swazi Prescriptions: New acetaminophen 500 mg capsule 1,000 mg PO Q6H PRN (Reason: pain) Qty: 30 0RF ibuprofen 600 mg tablet 600 mg PO TID PRN (Reason: pain) Qty: 30 0RF oxycodone 5 mg tablet 5 mg PO Q8H PRN (Reason: pain) Qty: 20 0RF No Action Fiasp FlexTouch U-100 Insulin 100 unit/mL (3 mL) insulin pen SUBCUT Ozempic 2 mg/dose (8 mg/3 mL) pen injector SUBCUT fluconazole 150 mg tablet 150 mg PO ONCE Qty: 2 0RF Rx Instructions: as a single dose. May repeat in 72 hours if needed. nitrofurantoin monohyd/m-cryst [Macrobid] 100 mg capsule 100 mg PO Q12H 5 Days Qty: 10 0RF Rx Instructions: must administer with a meal/food lisinopril 5 mg Tablet 5 mg PO DAILY dapagliflozin propanediol [Farxiga] 10 mg Tablet 10 mg PO DAILY atorvastatin [Lipitor] 40 mg tablet 40 mg PO HS aspirin [Children's Aspirin] 81 mg tablet,chewable 81 mg PO DAILY insulin glargine [Lantus Solostar U-100 Insulin] 100 unit/mL (3 mL) insulin pen 15 unit subcut BID clopidogrel [Plavix] 75 mg tablet 75 mg PO DAILY Qty: 30 0RF Follow-up/Referrals: David,Janessa Kellogg [Primary Care Provider] Larry Fry MD [Physician, Orthopedics] Stand Alone Forms: Work/School Release IP Time of Disposition: 09:45
[2025-02-10] MEDS: HYDROcodone/acetaminophen (*CRX) 5-325 MG TABLET 1 TAB PO ×2 (06:13→08:47)
[2025-02-10 06:30] VITALS: BP 130/54; PULSE 80; RESP 18; O2SAT 94
[2025-02-10 07:00] VITALS: BP 121/49; PULSE 80; RESP 16; O2SAT 96
[2025-02-10 10:18] VITALS: BP 138/76; PULSE 85; RESP 18; O2SAT 98
== END 2025-02-10 10:19 | disposition home or self-care (01) ==
PROVIDERS: Emergency Provider Student in an Organized Health Care Education/Training Program; PCP Internal Medicine Infectious Disease
DX: S82.035A Nondisplaced transverse fracture of left patella, initial encounter for closed fracture (principal); W01.0XXA Fall on same level from slipping, tripping and stumbling without subsequent striking against object, initial encounter; F17.210 Nicotine dependence, cigarettes, uncomplicated
CPT/HCPCS: 73562; 99283; A9270